=== PATIENT | female | born 1945 | race Caucasian/White ===

== ENCOUNTER 2024-01-03 06:18 | Inpatient (IN) | payer MEDICARE, OTHER, SELFPAY ==
--- NOTE | 2023-12-04 08:11 | CM ---
Addendum entered by Genesis Bruner 01/01/24 08:45:
Referral sent to [facility] through [facility]. Spoke with Asia at [facility] ([phone]). She confirmed receipt of referral and that they will see patient upon discharge. telephone clerk telegraph office to fax discharge instructions to [facility]; fax: [phone].
Original Note:
Patient is scheduled for an elective R TKR on 01/03/24. Spoke with patient's daughter, Elsy, prior to surgery via telephone. Introduced role of Orthopedic Navigator. She reports that patient lives alone in a one floor apartment at [facility]. She
currently functions independently. She uses a rollator in her apartment and to/from her meals. She uses a cane in the community. She also has a rolling walker, shower seat and raised toilet seat. She has had VN services through [facility]. PCP is Shelia
Azael.
Discussed orthopedic program and post surgical plans. Reviewed anticipated length of stay and that goal is for patient to return home at discharge. Also reviewed outpatient PT. She is in agreement with tentative plan and states that she and her
siblings will stay with patient when she initially returns home. [facility] when she returns home (They will see her in her apartment).
Patient will complete online education.
Plan: Orthopedic Navigator will remain available to assist with the care of patient and will reassess discharge needs after surgery.
[2023-12-11 12:55] VITALS: BMI 28.0
[2023-12-11 14:10] LABS: Hematocrit 42.5 % (37.0-47.0); Hemoglobin 13.8 g/dL (12.0-16.0); Mean Corp Hgb Conc. 32.5 g/dL (33.0-37.0); Mean Corpuscular Hgb 29.6 pg (27.0-31.0); Mean Corpuscular Volume 91.2 fL (81.0-99.0); Mean Platelet Volume 10.4 fL (7.4-10.4); Platelet Count 161 10^3/uL (130-400); Red Blood Cell Count 4.66 10^6/uL (4.20-5.40); Red Cell Dist. Width 13.9 % (11.5-14.5); White Blood Cell Count 4.8 10^3/uL (4.8-10.8)
[2023-12-11 14:39] LABS: Glycohemoglobin (HgbA1c) 5.1 % (4.0-5.6)
[2023-12-11 14:52] LABS: ALT (SGPT) 31 U/L (0-35); AST (SGOT) 44 U/L (14-36); Albumin 4.3 g/dl (3.5-5.0); Alkaline Phosphatase 102 U/L (38-126); Blood Urea Nitrogen 20 mg/dl (7-17); Calcium 9.4 mg/dl (8.4-10.2); Carbon Dioxide 31 mmol/L (22-30); Chloride 103 mmol/L (98-107); Estimated Creatinine Clearance 48 ml/min; Glucose 72 mg/dl (70-99); HDL Cholesterol 68 mg/dl; LDL Cholesterol, Calculated 57 mg/dl; Potassium 4.6 mmol/L (3.5-5.1); Sodium 138 mmol/L (135-145); Total Cholesterol 144 mg/dl (50-199); Total Protein 6.7 g/dl (6.3-8.2); Triglyceride 96 mg/dl (10-149); Very Low Density Lipoprotein 19 mg/dl (0-30); eGFR > 60.00
[2023-12-11 16:14] VITALS: BMI 28.0
[2024-01-03] VITALS (11 sets, daily range): BP systolic 104–156; BP diastolic 54–75; PULSE 61; O2SAT 94; BMI 28.0
[2024-01-03] MEDS: NORMOSOL-R 1000 IV ×2 (08:26→11:51)
[2024-01-03] MEDS: TYLENOL 650 MG PO ×3 (08:26→20:12)
[2024-01-03] MEDS: CELEBREX 200 MG PO (08:26)
[2024-01-03 08:51] LABS: INR 1.17; PT 14.9 Sec (11.4-14.6)
[2024-01-03] MEDS: ROXICODONE 5 MG PO (12:09)
[2024-01-03] MEDS: VITAMIN B-12 PO (13:50)
[2024-01-03] MEDS: VITAMIN D3 (cholecalciferol) PO (13:51)
[2024-01-03] MEDS: VITAMIN C PO (13:51)
[2024-01-03] MEDS: WELLBUTRIN XL (24 hour extended release) PO (13:51)
--- NOTE | 2024-01-03 14:33 | W.PN.ORTHO ---
Today's Communication / Plan
-
D/c when clinically stable.
Assessment
.
Distal Motor Intact: Yes
Dressing:
Clean, dry and intact.
Assessment:
R knee OA s/p R TKA w/ Dr Pena 01/03/24
DVT prophylaxis - Warfarin, b/l venous foot pumps
- Was placed on Lovenox bridge pre-op; no need to resume post-op per Cardio
- INRs to be managed by Cardio; will ask Cardio when first INR should be. INR assessed through home device
R knee pain - will include Prednisone taper and Lidoderm patches
- Monitor pain and adjust meds further if needed
HTN - + parameters - monitor BP
NSVT, persistent A fib, and post-operative bradycardia after AVR, status post dual chamber pacemaker insertion 2018 - monitor on tele
- Continue BB
- Resume Warfarin
Chronic diastolic heart failure, preserved ejection fraction - resume Furosemide w/ BP parameters to avoid post-surgical hypotension
- Decrease hourly IVF rate to avoid fluid overload
Severe mitral and tricuspid regurgitation, status post St. Isac mechanical mitral valve replacement, tricuspid valve repair, and left modified MAZE 2013
Severe aortic stenosis, status post St. Isac mechanical aortic valve replacement and aorta tear repair with bovine pericardial tissue 2018
- Resume Warfarin as stated above
Ambulatory dysfunction - on fall precautions
Mildly elevated AST - max dose of Tylenol reduced daily
�
Hypercholesterolemia
Abdominal aortic atherosclerosis
Pulmonary hypertension
Acute pyelonephritis 2017
Diverticulosis
Cholelithiasis, asymptomatic
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
Traumatic right temporal intracranial hemorrhage, status post RESPOOLER shunt 05/2023
Previous lacunar infarcts of basal ganglia
Thyroid nodules, stable on serial imaging
Depression
Anxiety
Plan
.
Surgery / Date: R TKA w/ Dr Pena 01/03/24
DVT Prophylaxis: Coumadin
Activity:
Out of bed.
PT/OT
Discharge Plan: Home (w/ home PT )
Subjective
.
.:
Patient examined resting in bed.
R knee pain 04/05 despite recent pain meds - will adjust medication regimen.
Denies any other acute complaints.
Vital Signs and Labs
.
Vital Signs and Labs:
Lab Results
12/11/23 12:45
12/11/23 12:45
Temp Pulse Resp BP Pulse Ox
97.8 F 50 18 140/67 97
01/03/24 08:28 01/03/24 08:28 01/03/24 08:28 01/03/24 08:28 01/03/24 08:28
PT 14.9 Sec (11.4-14.6) H 01/03/24 08:20
INR 1.17 01/03/24 08:20
Physical Exam
-
HEENT: No pallor, cyanosis, or jaundice. Throat clear.
NECK: Supple. No JVD.
RESPIRATORY: Lungs clear to auscultation.
CVS: Irregular irregular.
ABDOMEN: Soft, non-tender. No distension.
EXTREMITIES: Strength equal, no calf pain with palpation/dorsiflexion. Calves soft.
COMPOSITION PROFESSOR: AOx3. No focal deficits. aircraft maintenance supervisor grossly intact
[2024-01-03] MEDS: LIDOCAINE 4% PATCH 2 PATCH TOPICAL (14:53)
[2024-01-03] MEDS: DELTASONE 40 MG PO (14:54)
[2024-01-03] MEDS: ZOFRAN 4 MG IV (15:02)
[2024-01-03] MEDS: COUMADIN 5 MG PO (17:17)
[2024-01-03] MEDS: ANCEF 5 IV (17:18)
[2024-01-03] MEDS: SENOKOT 17.1999999999999993 MG PO (20:12)
[2024-01-03] MEDS: COLACE 100 MG PO (20:12)
[2024-01-03] MEDS: BACTROBAN 2% OINTMENT 1 APPLIC NASAL (20:12)
[2024-01-03] MEDS: LIPITOR 20 MG PO (22:06)
[2024-01-03] MEDS: ROXICODONE 10 MG PO (22:06)
[2024-01-04] VITALS (8 sets, daily range): BP systolic 130–154; BP diastolic 59–74; PULSE 60–61; O2SAT 87–98; BMI 29.6
[2024-01-04] MEDS: TYLENOL 650 MG PO ×4 (01:25→20:50)
[2024-01-04] MEDS: ANCEF 5 IV (01:26)
[2024-01-04] MEDS: ROXICODONE 10 MG PO (05:53)
[2024-01-04 06:18] LABS: INR 1.31; PT 16.4 Sec (11.4-14.6)
[2024-01-04] MEDS: BACTROBAN 2% OINTMENT 1 APPLIC NASAL ×2 (08:38→20:49)
[2024-01-04] MEDS: SENOKOT 17.1999999999999993 MG PO ×2 (08:39→20:50)
[2024-01-04] MEDS: COLACE 100 MG PO ×2 (08:39→20:49)
[2024-01-04] MEDS: WELLBUTRIN XL (24 hour extended release) 150 MG PO (08:39)
[2024-01-04] MEDS: TOPROL XL 25 MG PO (08:40)
[2024-01-04] MEDS: KCL 10 MEQ PO (08:41)
[2024-01-04] MEDS: VITAMIN D3 (cholecalciferol) 125 MCG PO (08:41)
[2024-01-04] MEDS: VITAMIN C 500 MG PO (08:42)
[2024-01-04] MEDS: VITAMIN B-12 1000 MCG PO (08:42)
[2024-01-04] MEDS: LIDOCAINE 4% PATCH 2 PATCH TOPICAL (08:42)
--- NOTE | 2024-01-04 08:52 | CM ---
Addendum entered by NAVIN Schneider 01/04/24 14:32:
Patient to remain in hospital another night. Patient back on oxygen. Spoke to lila Huston who was present today. Discussed need for home RN to monitor oxygen levels. Betzaida and family talked and agreed to add RN. Navigator spoke to Asia at [facility]. Vincenzo
works with [facility] to add RN. Referral updated to Vincenzo and Asia will contact [facility] to get RN to follow at home.
Fax discharge instructions to [phone].
Original Note:
Reviewed chart and held rounds with PT, OT and nursing. Patient admitted as planned for elective R TKR. Met with patient at bedside. Confirmed information previously obtained for assessment. Also discussed discharge plans. The plan is for patient to
return home at discharge. Her daughters will be staying with her at her [facility] apartment. Reviewed home PT services including start of care (tentatively 01/05). [facility] PT will see patient in her apartment at [facility]. Options list
provided and PAC data reviewed.
Patient has a rolling walker, rollator, shower seat, raised toilet seat and a cane at home.
Referral sent to [facility] through [facility]. Contact at [place] is Asia at ([phone]). They will see patient upon discharge. formula clerk to fax discharge instructions to [facility]; fax: [phone].
Patient will use [facility]'s pharmacy for discharge prescriptions.
--- NOTE | 2024-01-04 10:10 | W.PN.ORTHO ---
Today's Communication / Plan
-
Await PT and OT recs.
D/c later today if remaining clinically stable.
Assessment
.
Distal Motor Intact: Yes
Dressing:
Clean, dry and intact.
Assessment:
R knee OA s/p R TKA w/ Dr Pena 01/03/24
DVT prophylaxis - Warfarin, b/l venous foot pumps
- Was placed on Lovenox bridge pre-op; no need to resume post-op per Cardio
- INRs to be managed by Cardio. First INR per Coumadin clinic 1 week post-surgery. INR assessed through home device
R knee pain - will include Prednisone taper and Lidoderm patches
- Pain better tolerated by POD 1
HTN - + parameters - BPs stable
NSVT, persistent A fib, and post-operative bradycardia after AVR, status post dual chamber pacemaker insertion 2018 - rhythm stable on tele
- Continue BB
- Resumed Warfarin
Chronic diastolic heart failure, preserved ejection fraction - resumed Furosemide w/ BP parameters to avoid post-surgical hypotension
- Decreased hourly IVF rate to avoid fluid overload
- No s/sx of acute CHF
Severe mitral and tricuspid regurgitation, status post St. Isac mechanical mitral valve replacement, tricuspid valve repair, and left modified MAZE 2013
Severe aortic stenosis, status post St. Isac mechanical aortic valve replacement and aorta tear repair with bovine pericardial tissue 2018
- Resumed Warfarin as stated above
Ambulatory dysfunction - on fall precautions
Mildly elevated AST - max dose of Tylenol reduced daily
�
Hypercholesterolemia
Abdominal aortic atherosclerosis
Pulmonary hypertension
Acute pyelonephritis 2017
Diverticulosis
Cholelithiasis, asymptomatic
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
Traumatic right temporal intracranial hemorrhage, status post INSURANCE POLICY ISSUE CLERK shunt 05/2023
Previous lacunar infarcts of basal ganglia
Thyroid nodules, stable on serial imaging
Depression
Anxiety
Plan
.
Surgery / Date: R TKA w/ Dr Pena 01/03/24
DVT Prophylaxis: Coumadin
Activity:
Out of bed.
PT/OT
Discharge Plan: Home w/ VN (vs SNF)
Subjective
.
.:
Patient resting comfortably in bed this AM.
R knee pain better tolerated in comparison to yesterday.
Denies any new significant complaints.
Eager for potential d/c today.
Vital Signs and Labs
.
Vital Signs and Labs:
Lab Results
12/11/23 12:45
12/11/23 12:45
Temp Pulse Resp BP Pulse Ox
97.7 F 63 16 130/59 90
01/04/24 07:04 01/04/24 08:40 01/04/24 07:04 01/04/24 08:41 01/04/24 07:04
PT 16.4 Sec (11.4-14.6) H 01/04/24 05:39
INR 1.31 01/04/24 05:39
Non-invasive Hgb result: 14.1
Physical Exam
-
HEENT: No pallor, cyanosis, or jaundice. Throat clear.
NECK: Supple. No JVD.
RESPIRATORY: Lungs clear to auscultation.
CVS: Irregular irregular (rate controlled).
ABDOMEN: Soft, non-tender. No distension.
EXTREMITIES: Post-op R knee edema. Strength equal, no calf pain with palpation/dorsiflexion. Calves soft.
APPLIED PSYCHOLOGY PROFESSOR: AOx3. No focal deficits. incinerator plant supervisor grossly intact
[2024-01-04] MEDS: VENTOLIN NEBULES INH (12:03)
[2024-01-04 12:24] LABS: Blood Urea Nitrogen 24 mg/dl (7-17); Calcium 9.2 mg/dl (8.4-10.2); Carbon Dioxide 30 mmol/L (22-30); Chloride 99 mmol/L (98-107); Estimated Creatinine Clearance 49 ml/min; Glucose 116 mg/dl (70-99); Potassium 4.2 mmol/L (3.5-5.1); Sodium 136 mmol/L (135-145); eGFR > 60.00
[2024-01-04 12:42] LABS: NT-proBNP 1920 pg/ml; Troponin I < 0.012 ng/ml
[2024-01-04] MEDS: ROXICODONE 5 MG PO ×2 (13:09→17:34)
[2024-01-04] MEDS: LASIX 40 MG IV (13:10)
[2024-01-04] MEDS: FLUSH (NSS) 2 FLUSH IV (13:11)
[2024-01-04] MEDS: VENTOLIN NEBULES 2.5 MG INH ×2 (15:22→19:44)
--- NOTE | 2024-01-04 15:42 | CON.PUL ---
Consultation
Consultation Request
Date/Time Consultation Requested: 01/04/2024
Date/Time Consultation Performed: 01/04/2024
Requesting Provider: Dr. Pena
Performing Provider: Dr. Neeraj Emery
Reason for Consultation: Acute hypoxemic respiratory failure-postoperatively
Medical History
-
History of Present Illness:
78-year-old woman with history of osteoarthritis, hypertension, hypercholesterolemia, history of nonsustained ventricular tachycardia, atrial fibrillation, chronic heart failure with preserved ejection fraction, severe MR and TR status post
mechanical mitral valve, tricuspid valve repair in 2013. Status post aortic valve replacement 2019. Pacemaker, ambulatory dysfunction. Electively admitted for right knee arthroplasty. Surgery underwent without immediate complications at 01/03/2024.
Patient has persistent hypoxemia postoperatively. We were consulted on 01/04/2024 for evaluation.
Past Medical History
Past Medical History: Other (See assessment and plan section)
Social History
Tobacco: Non-smoker
Alcohol: Occasional
Employment: Retired
Family History
Family History: Reviewed & Not Pertinent
Allergies / Home Medications
Allergies
Allergy/AdvReac Type Severity Reaction Status Date / Time
Iodinated Contrast Media Allergy tingling, Verified 01/03/24 08:08
itching
Home Medications
Medication Instructions Recorded Confirmed Last Taken Type
atorvastatin 20 mg tablet 20 mg PO HS High Cholesterol 02/18/19 01/03/24 01/02/24 20:00 History
metoprolol succinate 25 mg 25 mg PO DAILY #30 tabs 04/04/19 01/03/24 01/03/24 Rx
tablet,extended release 24 hr
amlodipine 5 mg tablet 5 mg PO DAILY Blood Pressure 09/20/21 01/03/24 01/02/24 07:00 History
ascorbic acid (vitamin C) 500 mg 500 mg PO DAILY Supplement 09/20/21 12/05/23 12/27/23 History
tablet (Vitamin C)
biotin 1 mg capsule 1 mg PO DAILY Supplement 09/20/21 12/05/2312/27/24 History
cyanocobalamin (vitamin B-12) 1,000 mcg PO DAILY Supplement 09/20/21 12/05/23 12/27/23 History
1,000 mcg tablet
docosahexaenoic acid (dha)-epa 120 1 cap PO DAILY Supplement 09/20/21 01/03/24 12/27/23 History
mg-180 mg capsule
multivitamin with folic acid 400 1 tab PO DAILY Supplement 09/20/21 01/03/24 12/27/23 History
mcg tablet (Tab-A-Narayan)
potassium citrate 10 mEq (1,080 10 meq PO DAILY Electrolyte 09/20/21 01/03/24 01/02/24 07:00 History
mg) tablet,extended release Repletion
bupropion HCl 150 mg 24 hr tablet, 150 mg PO DAILY Depression 12/05/23 01/03/24 01/02/24 07:00 History
extended release
cholecalciferol (vitamin D3) 125 125 mcg PO DAILY Supplement 12/05/23 12/05/23 12/27/23 History
mcg (5,000 unit) tablet (Vitamin
D3)
furosemide 40 mg tablet 40 mg PO DAILY Fluid 12/05/23 01/03/24 01/02/24 08:00 History
Retention/Swelling
glucosam 750 mg-chondroi 100 1 tab PO DAILY Supplement 12/05/23 12/05/23 12/27/23 History
mg-hyalur 1.65 mg-CF borate 108 mg
tablet (Move Free ClearEdge3D)
vit C 250 mg-vit E 90 mg-zinc 40 1 tab PO DAILY Supplement 12/05/23 12/05/23 12/27/23 History
mg-copper 1 [id number]
capsule (PreserVision AREDS-2)
warfarin 5 mg tablet 5 mg PO HS Blood Clot Prevention/Tx 12/05/23 01/03/24 12/28/23 History
mupirocin 2 % topical ointment 1 applic intranasal BID #1 tube 12/11/23 Unknown Rx
oxycodone 5 mg tablet 5 - 10 mg PO Q4H PRN 01/04/24 Unknown Rx
moderate-severe pain #30 tabs
Review of Systems
-
History Source: Patient
All other systems: Negative unless noted
Vitals / Labs / Diagnostic Testing
Vital Signs
Temp Pulse Resp BP Pulse Ox
98.4 F 61 17 147/70 100
01/04/24 15:35 01/04/24 15:35 01/04/24 15:35 01/04/24 15:35 01/04/24 15:35
Lab Data
12/11/23 12:45
01/04/24 11:57
Laboratory Results
01/04/24
05:39
PT 16.4 H
INR 1.31
Diagnostic Testing:
Physical Exam
-
HEENT: Normocephalic
Cardiovascular: S1/S2
Respiratory: Clear and Non-Labored Respirations
GI: Soft and Non Distended
Neurology: Awake, Alert, Oriented and AO x 3
Skin: Warm
General: Respiratory Distress (n) and Comfortable
Assessment
-
Postoperative hypoxemia 2L NC.
VQ scan: 01/04/2024-low probability
Chest x-ray: Small bilateral pleural effusions. Cardiomegaly.
proBNP 1920/negative cardiac biomarkers.
Status post right arthroplasty: Local/regional spinal anesthesia
Conditions present prior admission:
Osteoarthritis
Hypertension
Abdominal aortic atherosclerosis
History of nonsustained ventricular tachycardia
Chronic atrial fibrillation on anticoagulation with warfarin
Heart failure with preserved ejection fraction
Severe MR and TR status post [place] Isac mechanical mitral valve and tricuspid valve repair 2013
Severe aortic stenosis status post mechanical aortic valve replacement in 2019
Diverticulosis
History of traumatic subdural hematoma status post rhinectomy 08/2021
Traumatic right temporal intracranial hemorrhage status post COMPUTER NUMERICAL CONTROL PROGRAMMER shunt 05/2023
History of previous lateral infarct
Ambulatory dysfunction
Depression
Anxiety
Echocardiogram 09/23/2019: Showed normal LVEF. Abnormal septal motion consistent with post open heart surgery status. Mild LVH. Stage I diastolic dysfunction. Mitral valve in place. Mild MR. Replaced mechanical aortic valve noted.
Assessment and plan:
Hypoxemia initially on 2 L of supplemental oxygen via nasal cannula, likely due to subsegmental atelectasis and possibly some degree of volume overload.(Small bilateral pleural effusions with moderately increased proBNP)
Received one dose of lasix with good response. Now on RA, pulse ox up to 96% on RA when uses IS. This was encouraged.
In no distress, asymptomatic other than postop pain.
-
VQ scan with low probability for pulmonary embolism.
-
Incentive spirometry encouraged
Out of bed with physical therapy as able
-
On prednisone taper and lidocaine patch for pain.
-
Warfarin has been restarted-follow INR
Mechanical DVT prophylaxis as able.
-
Hopefully can DC in AM
Cont. PT/OT
-
[2024-01-04] MEDS: DELTASONE 40 MG PO (16:19)
[2024-01-04] MEDS: COUMADIN 5 MG PO (17:34)
[2024-01-04] MEDS: ROXICODONE 2.5 MG PO (20:48)
[2024-01-04] MEDS: LIPITOR 20 MG PO (20:58)
[2024-01-05] MEDS: DILAUDID 0.5 MG IV (00:32)
[2024-01-05] MEDS: ZOFRAN 4 MG IV (00:32)
[2024-01-05] MEDS: TYLENOL PO (03:09)
[2024-01-05 03:35] VITALS: BP 159/76
[2024-01-05 05:23] VITALS: BMI 27.8
[2024-01-05 06:14] LABS: INR 1.66; PT 19.7 Sec (11.4-14.6)
--- NOTE | 2024-01-05 07:04 | PTCARENOTE ---
r knee increasing edema and pt continues to c/o pain at the site. minor erythema noted. n/v checks unchanged. dayshijorge rn aware.
[2024-01-05] MEDS: VENTOLIN NEBULES 2.5 MG INH (07:23)
--- NOTE | 2024-01-05 08:41 | CM ---
Addendum entered by Genesis Bruner 01/05/24 11:04:
Met with patient and her son, Pete. Discharge plans reviewed.
Original Note:
Reviewed chart and held rounds with PT, OT and nursing. Met with patient at bedside. Discussed discharge plans. The plan continues to be for patient to return home at discharge. Her daughters will be staying with her at her [facility] apartment.
Reviewed VN services including start of care 01/06), services ordered (PT, OT, SN). Since patient will need nursing services, [facility] to provide services.
Patient has a rolling walker, rollator, shower seat, raised toilet seat and a cane at home.
Spoke with Praneeth at [facility]. He confirms receipt of referral and their ability to start care on 01/06. braille and talking books clerk to fax discharge instructions to [facility]; fax: [phone].
Patient will use [facility] pharmacy for discharge prescriptions.
[2024-01-05] MEDS: TOPROL XL 25 MG PO (08:43)
[2024-01-05] MEDS: ROXICODONE 5 MG PO (08:45)
[2024-01-05] MEDS: WELLBUTRIN XL (24 hour extended release) 150 MG PO (08:46)
[2024-01-05] MEDS: KCL 10 MEQ PO (08:46)
[2024-01-05] MEDS: TYLENOL 650 MG PO (08:46)
[2024-01-05] MEDS: COLACE 100 MG PO (08:46)
[2024-01-05] MEDS: SENOKOT 17.1999999999999993 MG PO (08:46)
[2024-01-05] MEDS: VITAMIN D3 (cholecalciferol) 125 MCG PO (08:47)
[2024-01-05] MEDS: VITAMIN C 500 MG PO (08:47)
[2024-01-05] MEDS: VITAMIN B-12 1000 MCG PO (08:47)
[2024-01-05] MEDS: LIDOCAINE 4% PATCH 2 PATCH TOPICAL (08:47)
[2024-01-05 08:56] VITALS: BP 123/48
--- NOTE | 2024-01-05 09:15 | W.PN.ORTHO ---
Today's Communication / Plan
-
Await further Pulmonary recs.
D/c later today if cleared to go by Pulmonary.
Assessment
.
Distal Motor Intact: Yes
Dressing:
Clean, dry and intact.
Assessment:
R knee OA s/p R TKA w/ Dr Pena 01/03/24
DVT prophylaxis - Warfarin, b/l venous foot pumps
- Was placed on Lovenox bridge pre-op; no need to resume post-op per Cardio
- INRs to be managed by Cardio. First INR per Coumadin clinic 1 week post-surgery. INR assessed through home device
Acute hypoxemic respiratory failure-postoperatively - on room air currently w/ re-initiation of Lasix, Prednisone taper, standing order nebs, minimization of opioids, and IS
- Likely 2* volume overload from CHF (moderately elevated BNP, increased weight, small pleural effusions on CXR) - continue home Furosemide
- VQ scan low probability of PE
- Appreciate Pulmonary - will await further recs prior to d/c
HTN - + parameters - BPs stable
NSVT, persistent A fib, and post-operative bradycardia after AVR, status post dual chamber pacemaker insertion 2019 - brief run of PVCs this AM on tele, otherwise rhythm stable
- Continue BB
- Resumed Warfarin
Chronic diastolic heart failure, preserved ejection fraction - resumed Furosemide as BP should now tolerate it
- Decreased hourly IVF rate to avoid fluid overload
- Weight improved POD 2; no symptoms concerning of acute CHF today
Severe mitral and tricuspid regurgitation, status post St. Isca mechanical mitral valve replacement, tricuspid valve repair, and left modified MAZE 2013
Severe aortic stenosis, status post St. Isac mechanical aortic valve replacement and aorta tear repair with bovine pericardial tissue 2018
- Resumed Warfarin as stated above
Ambulatory dysfunction - on fall precautions
Mildly elevated AST - max dose of Tylenol reduced daily
�
Hypercholesterolemia
Abdominal aortic atherosclerosis
Pulmonary hypertension
Acute pyelonephritis 2017
Diverticulosis
Cholelithiasis, asymptomatic
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
Traumatic right temporal intracranial hemorrhage, status post DOCUMENTATION CONSULTANT shunt 05/2023
Previous lacunar infarcts of basal ganglia
Thyroid nodules, stable on serial imaging
Depression
Anxiety
Plan
.
Surgery / Date: R TKA w/ Dr Pena 01/03/24
DVT Prophylaxis: Coumadin
Activity:
Out of bed.
PT/OT
Discharge Plan: Home w/ VN
Subjective
.
.:
Patient resting comfortably in bed this AM.
Acute hypoxemic respiratory failure-postoperatively - likely secondary to volume overload. Pt now off supplemental O2.
Denies any new acute complaints. Reportedly feels better than yesterday.
Eager for potential d/c today.
Vital Signs and Labs
.
Vital Signs and Labs:
Lab Results
12/11/23 12:45
01/04/24 11:57
Temp Pulse Resp BP Pulse Ox
98.3 F 70 16 123/48 94
01/05/24 08:56 01/05/24 08:56 01/05/24 08:56 01/05/24 08:56 01/05/24 08:56
PT 19.7 Sec (11.4-14.6) H 01/05/24 04:57
INR 1.66 01/05/24 04:57
Non-invasive Hgb result: 13.3
Physical Exam
-
HEENT: No pallor, cyanosis, or jaundice. Throat clear.
NECK: Supple. No JVD.
RESPIRATORY: Lungs clear to auscultation.
CVS: Prosthetic S1, S2. RRR.
ABDOMEN: Soft, non-tender. No distension.
EXTREMITIES: Post-op R knee edema. Strength equal, no calf pain with palpation/dorsiflexion. Calves soft.
FLANGE TURNER: AOx3. No focal deficits. electric deicer inspector grossly intact
--- NOTE | 2024-01-05 11:05 | W.PN.PUL3 ---
Today's Communication / Plan
-
Discharge planning
Sign off
Assessment
-
Postoperative hypoxemia 2L NC.
VQ scan: 01/04/2024-low probability
Chest x-ray: Small bilateral pleural effusions. Cardiomegaly.
proBNP 1920/negative cardiac biomarkers.
Status post right arthroplasty: Local/regional spinal anesthesia
Conditions present prior admission:
Osteoarthritis
Hypertension
Abdominal aortic atherosclerosis
History of nonsustained ventricular tachycardia
Chronic atrial fibrillation on anticoagulation with warfarin
Heart failure with preserved ejection fraction
Severe MR and TR status post [place] Isac mechanical mitral valve and tricuspid valve repair 2013
Severe aortic stenosis status post mechanical aortic valve replacement in 2018
Diverticulosis
History of traumatic subdural hematoma status post rhinectomy 08/2021
Traumatic right temporal intracranial hemorrhage status post ARTIFICIAL LEATHER CALENDER OPERATOR shunt 05/2023
History of previous lateral infarct
Ambulatory dysfunction
Depression
Anxiety
Echocardiogram 09/23/2019: Showed normal LVEF. Abnormal septal motion consistent with post open heart surgery status. Mild LVH. Stage I diastolic dysfunction. Mitral valve in place. Mild MR. Replaced mechanical aortic valve noted.
Assessment and plan:
Clinically improved
Hypoxemia resolved.
likely due to subsegmental atelectasis and possibly some degree of volume overload.(Small bilateral pleural effusions with moderately increased proBNP)
Good response to diuresis
Currently asymptomatic.
Continue incentive spirometer
Increase activity as tolerated
-
VQ scan with low probability for pulmonary embolism.
-
On prednisone taper and lidocaine patch for pain.
-
Warfarin has been restarted-follow INR
Mechanical DVT prophylaxis as able.
-
Cont. PT/OT
-
No additional pulmonary recommendations.
For discharge today
Sign off
Subjective Data
-
Date of Service:
Date of Service: January 05, 2024
Chief Complaint: Pulmonary Follow Up (Postoperative hypoxemia)
Subjective:
Patient denies any pulmonary complaints this morning
Remains on room air
Sitting out of bed comfortably.
Review of Systems
Cardiopulmonary: Dyspnea (n), Cough (n), Sputum Production (n) and Wheezing (n)
Objective Data
Data Reviewed
Vital Signs / I&O / Oxygen:
Vital Signs
Temp Pulse Resp BP Pulse Ox
98.3 F 70 16 123/48 94
01/05/24 08:56 01/05/24 08:56 01/05/24 08:56 01/05/24 08:56 01/05/24 08:56
Intake and Output
01/04/24 01/05/24 01/06/24
06:59 06:59 06:59
Intake Total 2183 / 2183 1560 / 1560
Balance 2183 / 2183 1560 / 1560
SaO2 94
Nasal Cannula flow liters per 2
minute
Physical Exam
General: Comfortable
HEENT: Normocephalic
Cardiovascular: S1-S2
Respiratory: Clear and Non-Labored Respirations
GI: Soft and Non Distended
Neurology: Awake, Alert and Oriented
Labs/Micro/Reports
Lab Data
12/11/23 12:45
01/04/24 11:57
Laboratory Results
01/05/24
04:57
PT 19.7 H
INR 1.66
--- NOTE | 2024-01-05 11:09 | W.DS.TRANS ---
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
-
Discharge Instructions:
Sleep Apnea Risk Low
Discharge Diagnosis/Procedures R knee OA s/p R TKA w/ Dr Pena 01/03/24
Diet Other diet
Additional Diets Diabetic carb controlled x1 week for wound
healing/infection prevention; then resume
regular diet.
Activity As tolerated,With Walker
Driving Restrictions Not until seen by your Dr
Bathing Restrictions OK to Shower
Blood Work PT/INR 01/10/2024, with results to
Coumadin clinic for further Warfarin dose
adjustments.
Other Services VN,PT
Wound Care Dressing to be removed 1 week post-surgery.
Specialty Instructions Weigh Daily
Instructions:
Stand-Alone Forms: Total Hip/Knee Replacement D/C
Changes to Home Medications: Yes
Discharge Medications:
DC Medications w/original date entered in [facility]
atorvastatin 20 mg tablet 20 mg PO HS High Cholesterol 02/18/19
metoprolol succinate 25 mg tablet,extended release 24 hr 25 mg PO DAILY #30 tabs 04/04/19
ascorbic acid (vitamin C) 500 mg tablet (Vitamin C) 500 mg PO DAILY Supplement 09/20/21
biotin 1 mg capsule 1 mg PO DAILY Supplement 09/20/21
cyanocobalamin (vitamin B-12) 1,000 mcg tablet 1,000 mcg PO DAILY Supplement 09/20/21
docosahexaenoic acid (dha)-epa 120 mg-180 mg capsule 1 cap PO DAILY Supplement 09/20/21
multivitamin with folic acid 400 mcg tablet (Tab-A-Narayan) 1 tab PO DAILY Supplement 09/20/21
bupropion HCl 150 mg 24 hr tablet, extended release 150 mg PO DAILY Depression 12/05/23
cholecalciferol (vitamin D3) 125 mcg (5,000 unit) tablet (Vitamin D3) 125 mcg PO DAILY Supplement 12/05/23
glucosam 750 mg-chondroi 100 mg-hyalur 1.65 mg-CF borate 108 mg tablet (Move Free [employer]) 1 tab PO DAILY Supplement 12/05/23
vit C 250 mg-vit E 90 mg-zinc 40 mg-copper 1 [id number] capsule (PreserVision AREDS-2) 1 tab PO DAILY Supplement 12/05/23
warfarin 5 mg tablet 5 mg PO HS Blood Clot Prevention/Tx 12/05/23
acetaminophen 325 mg tablet 650 mg PO Q6H #60 tabs 01/04/24
amlodipine 5 mg tablet 5 mg PO DAILY Blood Pressure #0 tabs 01/04/24
docusate sodium 100 mg capsule 100 mg PO BID #30 caps 01/04/24
lidocaine 4 % topical patch 2 patch topical DAILY #30 ea 01/04/24
prochlorperazine maleate 5 mg tablet 5 mg PO Q8H PRN nausea and vomiting #30 tabs 01/04/24
sennosides 8.6 mg tablet (Senna Lax) 17.2 mg PO BID #30 tabs 01/04/24
furosemide 40 mg tablet 40 mg PO DAILY Fluid Retention/Swelling #0 tabs 01/05/24
magnesium hydroxide 400 mg/5 mL oral suspension 30 ml PO DAILYPRN PRN constipation #355 mL 01/05/24
oxycodone 5 mg tablet 5 - 10 mg PO Q6H PRN moderate-severe pain #30 tabs 01/05/24
potassium citrate 10 mEq (1,080 mg) tablet,extended release 10 meq PO DAILY Electrolyte Repletion #0 tabs 01/05/24
prednisone 10 mg tablet 30 mg PO TAPER Anti-inflammatory #12 tabs 01/05/24
Home Medication Changes
acetaminophen 325 mg tablet 650 mg PO Q6H #60 tabs 01/04/24
docusate sodium 100 mg capsule 100 mg PO BID #30 caps 01/04/24
lidocaine 4 % topical patch 2 patch topical DAILY #30 ea 01/04/24
prochlorperazine maleate 5 mg tablet 5 mg PO Q8H PRN nausea and vomiting #30 tabs 01/04/24
sennosides 8.6 mg tablet (Senna Lax) 17.2 mg PO BID #30 tabs 01/04/24
magnesium hydroxide 400 mg/5 mL oral suspension 30 ml PO DAILYPRN PRN constipation #355 mL 01/05/24
oxycodone 5 mg tablet 5 - 10 mg PO Q6H PRN moderate-severe pain #30 tabs 01/05/24
prednisone 10 mg tablet 30 mg PO TAPER Anti-inflammatory #12 tabs 01/05/24
Pending Results: No
[2024-01-05] MEDS: VENTOLIN NEBULES INH (11:28)
== END 2024-01-05 13:05 | disposition home health service (06) | DRG 469 ==
LOC: 2 SOUTH 06:18
PROVIDERS: Internal Medicine Cardiovascular Disease; Physician Assistant; ADMITTING PHYSICIAN Orthopaedic Surgery; CONSULT PHYSICIAN Internal Medicine Critical Care Medicine; FAMILY PHYSICIAN Student in an Organized Health Care Education/Training Program
PROC: 0SRC0J9 Replacement of Right Knee Joint with Synthetic Substitute, Cemented, Open Approach (ICD-10-PCS; 2024-01-03)
DX: M17.11 Unilateral primary osteoarthritis, right knee (principal); J96.01 Acute respiratory failure with hypoxia; I50.32 Chronic diastolic (congestive) heart failure; I48.19 Other persistent atrial fibrillation; I47.20 Ventricular tachycardia, unspecified; J98.11 Atelectasis; I11.0 Hypertensive heart disease with heart failure; I70.0 Atherosclerosis of aorta; F32.A Depression, unspecified; F41.9 Anxiety disorder, unspecified; E78.00 Pure hypercholesterolemia, unspecified; I27.20 Pulmonary hypertension, unspecified; Z79.01 Long term (current) use of anticoagulants
CPT/HCPCS: 36415; 71046; 73560; 78582; 80048; 80053; 80061; 83036; 83880; 84484; 85027; 85610; 87070; 94640; 97110; 97116; 97163; 97166; 97530; A9540; A9567; C1713; C1776

== ENCOUNTER 2024-02-26 11:59 | Emergency (ER) | payer MEDICARE, OTHER, SELFPAY ==
[2024-02-26 12:05] VITALS: BP 162/80
--- NOTE | 2024-02-26 13:33 | ED.GENMED ---
History of Present Illness
General
Chief Complaint: Musculo-Skeletal Complaint
Time Seen by Provider: 02/26/24 13:22
Travel History
Have you had any contact with someone who has COVID-19?: No
Do you have any symptoms of coronavirus? Fever > 100 degrees, chills, cough, shortness of breath, sore throat, loss of taste or smell, muscle aches, or headache?: No
History of Present Illness
History of Present Illness:
78-year-old female presents to the emergency department for evaluation of progressively worsening pain to the right knee beginning mid last week. She is just under 2 months status post right total knee replacement performed at this hospital, states
her rehab is going well and she was walking without a cane. Last week during physical therapy she noted increased pain and swelling, called orthopedics and was started on a course of prednisone, she completed this course without improvement.
Taking oxycodone as well without significant improvement pain. Denies any fevers or chills. Has minimal pain at rest. Localizes pain to the popliteal and distal thigh region. Scheduled to see her orthopedist tomorrow
Past History
Past History
ED Past Medical History: Arrthythmia (Atrial fibrillation), HTN and Hypercholesterolemia
ED Past Surgical History: Cardiac
Social History
Tobacco: Non-smoker
Alcohol: Occasional
Drug: None
Personal:
Living: with family
Employment: Retired
Family History
Family History: Negative Diabetes, Hypertension or CAD
Review of Systems
Review of Systems
Allergies reviewed?: Yes
All Other Systems: ROS reviewed and negative except as documented in HPI and ROS
Phy Exam
Physical Exam
Physical Exam:
GEN: Well appearing, NAD, WDWN
HEENT: Oral mucosa moist, no scleral icterus
Cardiac: Regular rate
Lung: No respiratory distress, no tachypnea
MSK: Moderate right knee swelling with visible effusion, passive range of motion elicits no pain. There is limitation of extension which the patient states is baseline since preoperative period. No erythema. The wound is well-approximated and
well-healed with no dehiscence
Skin: Good color, no pallor or jaundice, no rashes
Neuro: AO x3, moves all extremities freely
Psych: Calm, cooperative
Course
Orders/Labs/Results
Orders:
Orders
02/26/24 13:32
CR Knee- Right 4 Or More View* Urgent
Comment:
Reason For Exam: pain/swelling, 2 mos s/p TKA
Vital Signs
Initial and Last Documented VS:
Initial Vital Signs
Temp Pulse Resp BP Pulse Ox
97.9 F 60 16 162/80 98
02/26/24 12:05 02/26/24 12:05 02/26/24 12:05 02/26/24 12:05 02/26/24 12:05
Last Documented Vital Signs
Temp Pulse Resp BP Pulse Ox
97.9 F 60 16 162/80 98
02/26/24 12:05 02/26/24 12:05 02/26/24 12:05 02/26/24 12:05 02/26/24 12:05
MDM/Problems Addressed
MDM/Problems Addressed:
Patient does have a knee effusion, question of hemarthrosis given that she is on warfarin. No erythema or pain with passive range of motion. Certainly does not examine clinically as a septic prosthetic knee however that is the chief concern at
this time given the recency of her surgery. She does not have a follow-up appoint with orthopedics. I did discuss with orthopedics and they recommend waiting for arthrocentesis until evaluation tomorrow. Would not advise holding her warfarin
given that she she has 2 mechanical heart valves and her stroke risk would be quite elevated as a result of this
*Critical Care Note
Total Time (30-74mins, 75-104mins- exclusive of procedures): Not Applicable
ED Attending Note
-
Portions of this chart may have been created with voice recognition software.� Occasional wrong word or��sound alike� substitutions may have occurred due to the inherent limitations of voice recognition software.
Discharge Plan
Departure
Patient Disposition: Home (Routine Discharge)
Date of Disposition: 02/26/24
Time of Disposition: 14:46
Patient with high blood pressure during this ER visit?: No
Discharge Problem:
Effusion of right knee
Instructions: Swollen Joints (DC)
Prescriptions:
No Action
atorvastatin 20 MG tablet
20 mg PO HS
metoprolol succinate 25 MG tablet extended release 24 hr
25 mg PO DAILY Qty: 30 3RF
cyanocobalamin (vitamin B-12) 1,000 MCG tablet
1,000 mcg PO DAILY
ascorbic acid (vitamin C) [Vitamin C] 500 MG tablet
500 mg PO DAILY
docosahexaenoic acid-epa 1 CAP capsule
1 cap PO DAILY
Hold Instructions: Resume on 01/10/24.
multivitamin with folic acid [Tab-A-Narayan] 1 TABLET tablet
1 tab PO DAILY
biotin 1 MG capsule
1 mg PO DAILY
bupropion HCl 150 mg Tablet Extended Release 24 Hr
150 mg PO DAILY
PreserVision AREDS-2 250-90-40-1 mg Capsule
1 tab PO DAILY
cholecalciferol (vitamin D3) [Vitamin D3] 125 mcg (5,000 unit) Tablet
125 mcg PO DAILY
warfarin 5 mg Tablet
5 mg PO HS
Move Free Joint Health 750 mg-100 mg- 1.65 mg-108 mg Tablet
1 tab PO DAILY
Hold Instructions: Resume on 01/10/24.
docusate sodium 100 mg Capsule
100 mg PO BID Qty: 30 0RF
prochlorperazine maleate 5 mg Tablet
5 mg PO Q8H PRN (Reason: nausea and vomiting) Qty: 30 0RF
lidocaine 4 % Adhesive Patch,Medicated
2 patch topical DAILY Qty: 30 0RF
Rx Instructions:
Over the counter. 12 hours on, 12 hours off.
Apply to sides of right knee/thigh
sennosides [Senna Lax] 8.6 mg Tablet
17.2 mg PO BID Qty: 30 0RF
Rx Instructions:
Over the counter
acetaminophen 325 mg Tablet
650 mg PO Q6H Qty: 60 0RF
Rx Instructions:
DO NOT exceed >3000 mg daily.
amlodipine 5 MG tablet
5 mg PO DAILY Qty: 0 0RF
Rx Instructions:
HOLD IF systolic blood pressure <130 while on Oxycodone.
magnesium hydroxide 400 mg/5 mL Suspension
30 ml PO DAILYPRN PRN (Reason: constipation) Qty: 355 0RF
Rx Instructions:
Add to bowel regimen of Colace and Senna if no bowel movement occurs by 01/05/24
furosemide 40 mg Tablet
40 mg PO DAILY Qty: 0 0RF
potassium citrate 10 MEQ tablet extended release
10 meq PO DAILY Qty: 0 0RF
oxycodone 5 mg tablet
5 - 10 mg PO Q6H PRN (Reason: moderate-severe pain) Qty: 30 0RF
Rx Instructions:
1 tab for moderate pain, 2 if severe.
Dx total joint.
prednisone 10 mg tablet
30 mg PO TAPER Qty: 12 0RF
Rx Instructions:
3 TABS X 2 DAYS, 2 TABS X 2 DAYS, 1 TAB X 2 DAYS, THEN STOP
Referrals:
Shelia Romeo PA-C [Family Provider] -
Urnuly Pena MD [Active] -
Activity Restrictions/Additional Instructions:
Make sure the Orthopedic provider tomorrow is aware that you DID NOT stop taking your warfarin due to the stroke risk
Interventions
Interventions:
*Risk Screen - Suicide Last Done: 02/26/24 13:20
*General Assessment Last Done: 02/26/24 15:10
*Neglect/Abuse Screening Last Done: 02/26/24 13:20
*ED COVID-19 Vaccine History Last Done: 02/26/24 12:05
*Nursing Disposition Last Done: 02/26/24 15:10
ED-Musculoskeletal Assessment Last Done: 02/26/24 14:16
Discharge Date and Time
Discharge Date/Time: 02/26/24 15:11
Print Language: CITIZEN OF [place]
== END 2024-02-26 15:11 | disposition home or self-care (01) ==
LOC: EMR 11:59
PROVIDERS: EMERGENCY PHYSICIAN Emergency Medicine; FAMILY PHYSICIAN Student in an Organized Health Care Education/Training Program
DX: M25.461 Effusion, right knee (principal); Z96.651 Presence of right artificial knee joint
CPT/HCPCS: 99283; 73564

== ENCOUNTER 2024-02-28 11:28 | Emergency (ER) | payer MEDICARE, OTHER, SELFPAY ==
[2024-02-28 11:36] VITALS: BP 166/85
[2024-02-28 12:02] LABS: % Basophils 0.3 % (0-2); % Immature Granulocytes 0.5 % (0-0.5); % Lymphocytes 12.7 % (20.5-51.1); % Monocytes 9.5 % (1.7-9.3); Absolute Eosinophils 0.1 10^3/uL (0-0.7); Absolute Lymphocytes 0.8 10^3/uL (1.2-3.4); Absolute Monocytes 0.6 10^3/uL (0.1-0.6); Absolute Neutrophils 4.7 10^3/uL (1.4-6.5); Hematocrit 40.3 % (37.0-47.0); Hemoglobin 12.7 g/dL (12.0-16.0); Mean Corp Hgb Conc. 31.5 g/dL (33.0-37.0); Mean Corpuscular Hgb 28.5 pg (27.0-31.0); Mean Corpuscular Volume 90.4 fL (81.0-99.0); Mean Platelet Volume 9.8 fL (7.4-10.4); Nucleated Red Blood Cells % 0 %; Platelet Count 218 10^3/uL (130-400); Red Blood Cell Count 4.46 10^6/uL (4.20-5.40); Red Cell Dist. Width 14.5 % (11.5-14.5); White Blood Cell Count 6.1 10^3/uL (4.8-10.8)
[2024-02-28 12:24] LABS: Troponin I < 0.012 ng/ml
[2024-02-28 12:30] LABS: PT 35.7 Sec (11.4-14.6)
[2024-02-28 12:31] LABS: ALT (SGPT) 24 U/L (0-35); AST (SGOT) 35 U/L (14-36); Albumin 4.2 g/dl (3.5-5.0); Alkaline Phosphatase 114 U/L (38-126); Blood Urea Nitrogen 15 mg/dl (7-17); Calcium 9.5 mg/dl (8.4-10.2); Carbon Dioxide 32 mmol/L (22-30); Chloride 103 mmol/L (98-107); Glucose 93 mg/dl (70-99); Potassium 3.7 mmol/L (3.5-5.1); Sodium 140 mmol/L (135-145); Total Bilirubin 0.7 mg/dl (0.2-1.3); Total Protein 6.9 g/dl (6.3-8.2); eGFR > 60.00
--- NOTE | 2024-02-28 14:34 | ED.GENMED ---
History of Present Illness
General
Chief Complaint: Swelling
Source: patient and family
Exam Limitations: none
Time Seen by Provider: 02/28/24 14:17
Travel History
Have you had any contact with someone who has COVID-19?: No
Do you have any symptoms of coronavirus? Fever > 100 degrees, chills, cough, shortness of breath, sore throat, loss of taste or smell, muscle aches, or headache?: No
History of Present Illness
History of Present Illness:
78-year-old female history of atrial fibrillation, CHF, hypertension, hyperlipidemia, pacemaker, right knee replacement [id number] presenting with right lower extremity swelling worse over the past 2 weeks. Patient also reports shortness of
breath with exertion for the past few weeks. Patient states that she is on Coumadin, recent INR was 4 this morning. Patient states that she was seen by her orthopedist who started her on prednisone for swelling and pain to right knee/leg. Patient
states that she is supposed be on Lasix but has not taken it for the past 4 to 5 days due to not being able to get to the bathroom in time. Patient denies fever, cough, chest pain, rash, or injury.
Past History
Past History
ED Past Medical History: Arrthythmia (Atrial fibrillation), HTN and Hypercholesterolemia
ED Past Surgical History: Cardiac
Social History
Tobacco: Non-smoker
Alcohol: Occasional
Drug: None
Personal:
Living: with family
Employment: Retired
Family History
Family History: Negative Diabetes, Hypertension or CAD
Phy Exam
Physical Exam
Physical Exam:
General: Alert, no acute distress
Head: NCAT
Eyes: clear conjunctiva
Neck: supple
Cardiac: regular rate and rhythm, clicking valve
Lungs: clear to auscultation bilaterally. No wheezes, rales, or rhonchi. Speaking full unlabored sentences. No respiratory distress.
Abdomen: soft, nondistended nontender. No rebound or guarding.
MSK: Well-healed surgical incision overlying right knee with no surrounding erythema or discharge. 2+ pitting edema right lower extremity, no edema left lower extremity. 2+ DP pulse bilaterally. No erythema or rash to right lower extremity
Skin: warm, dry
Neuro: Alert and oriented x3. no focal deficits
Scores
Heart Failure Risk
Heart Failure Risk Score: Yes
History of Stroke or TIA: No
History of intubation for respiratory distress: No
Heart rate on ED arrival >/= 110: No
SaO2 <90% on arrival on room air: No
HR >/=110 during 3min walk test (or too ill to perform test): No
ECG has acute ischemic changes: No
Urea >/=12mmol/L (BUN 33.6mg/dL): No
Serum CO2>/=35mmol/L: No
Troponin I or T elevated to MS Level (0.4mg/dL): No
NT-proBNP >/=5,000ng/L (5,000pg/ml): No
HF Risk Score: 0
Admission Status: LOW RISK 2.8% Consider discharge to home with f/u visit to PCP/Extracorporeal Circulation Specialist
Course
Orders/Labs/Results
Orders:
Orders
02/28/24 11:38
EKG [Electrocardiogram (*1)] Urgent
Reason for Study: Shortness of Breath
EKG- Treatment ONCE
02/28/24 11:45
Complete Blood Count/With Diff Urgent
Comprehensive Metabolic Panel Urgent
INR [Prothrombin Time] Urgent
Troponin I Urgent
02/28/24 14:30
CXR2 [CR Chest - 2 Views ] Urgent
Comment:
Reason For Exam: sob, hx chf
Venous Doppler Lwr Ext Rt [US Periph Venous LOWER Ext RT] Urgent
Comment:
Reason For Exam: hx r knee replacement, rle edema
02/28/24 14:39
NT-proBNP Urgent
02/28/24 17:02
Furosemide [Lasix] 40 mg IV NOW STA
Abnormal Lab Results
02/28/24
11:45
MCHC 31.5 L g/dL
(33.0-37.0)
Absolute Lymphs (auto) 0.8 L 10^3/uL
(1.2-3.4)
Neutrophils % 76.0 H %
(42.2-75.2)
Lymphocytes % 12.7 L %
(20.5-51.1)
Monocytes % 9.5 H %
(1.7-9.3)
PT 35.7 H Sec
(11.4-14.6)
Carbon Dioxide 32 H mmol/L
(22-30)
02/28/24 11:45
02/28/24 11:45
Vital Signs
Initial and Last Documented VS:
Initial Vital Signs
Temp Pulse Resp BP Pulse Ox
98.4 F 63 18 166/85 98
02/28/24 11:36 02/28/24 11:36 02/28/24 11:36 02/28/24 11:36 02/28/24 11:36
Last Documented Vital Signs
Temp Pulse Resp BP Pulse Ox
98.4 F 60 12 169/82 94
02/28/24 11:36 02/28/24 17:17 02/28/24 17:15 02/28/24 17:17 02/28/24 17:00
Comment
Comment:
Patient presents to the Emergency Department with __right lower extremity swelling and shortness of breath
Number and Complexity of Problems Addressed at the Encounter
� Chronic conditions affecting care:
� Acute Exacerbation and/or Progression of Chronic Illness:
� Differential Diagnosis includes: DVT, CHF, PE
Amount and/or Complexity of Data to be Reviewed and Analyzed
� I performed an independent evaluation of and my interpretation is:
EKG: paced rhythm at 64bpm with QRS 126 [address]Tc 458
[address]:
Xrays: CXR: cardiomyopathy (unchanged from previous), mild insterstitial edema
Laboratory Studies: probnp 1790 (previously 5050, 1920), troponin within normal limits, no anemia with hemoglobin 12.7
Other:
� Review of other/old records reveals: xray right knee on 02/26/2024 shows no fractures/dislocations. unremarkable appearance of right knee prosthesis. no suprapatellar effusion
� Clinical information was obtained by an independent historian:
� Prescriptions/Medications Considered but not given:
� Further testing considered but not performed:
Risk of Complications and/or Morbidity or Mortality of Patient Management
� Social Determinants of health affecting care:
� Discussion with other providers (PCP, Hospitalists, Consultants, etc):
� Escalation of care including admission/observation vs risk of discharge considered: 78-year-old female history of CHF, atrial fibrillation, right knee replacement in December 2023 presenting with right knee pain and worsening lower right lower
extremity swelling. Patient states that she has not been taking Lasix for the past 4 to 5 days. Patient states that she has been compliant with Coumadin and last INR was within normal limits. Patient states that her INR has been labile over the
past few weeks. Will obtain duplex rule out DVT. If positive, will consider CTA chest rule out PE. Patient is already on Coumadin however. CXr shows mild interstitial edema, probnp 1790 (previously in 5000s). spO2 >95% on RA with ambulation.
ordered lasix 40mg IV here in ED. instructed to follow up with cardiology and orthopedics, start lasix 40mg daily again
*Critical Care Note
Total Time (30-74mins, 75-104mins- exclusive of procedures): Not Applicable
ED Attending Note
-
Portions of this chart may have been created with voice recognition software.� Occasional wrong word or��sound alike� substitutions may have occurred due to the inherent limitations of voice recognition software.
Discharge Plan
Departure
Patient Disposition: Home (Routine Discharge)
Date of Disposition: 02/28/24
Time of Disposition: 17:12
Patient with high blood pressure during this ER visit?: Yes
Discharge Problem:
CHF (congestive heart failure)
Instructions: BLOOD PRESSURE
Prescriptions:
No Action
atorvastatin 20 MG tablet
20 mg PO HS
metoprolol succinate 25 MG tablet extended release 24 hr
25 mg PO DAILY Qty: 30 3RF
cyanocobalamin (vitamin B-12) 1,000 MCG tablet
1,000 mcg PO DAILY
ascorbic acid (vitamin C) [Vitamin C] 500 MG tablet
500 mg PO DAILY
docosahexaenoic acid-epa 1 CAP capsule
1 cap PO DAILY
Hold Instructions: Resume on 01/10/24.
multivitamin with folic acid [Tab-A-Narayan] 1 TABLET tablet
1 tab PO DAILY
biotin 1 MG capsule
1 mg PO DAILY
bupropion HCl 150 mg Tablet Extended Release 24 Hr
150 mg PO DAILY
PreserVision AREDS-2 250-90-40-1 mg Capsule
1 tab PO DAILY
cholecalciferol (vitamin D3) [Vitamin D3] 125 mcg (5,000 unit) Tablet
125 mcg PO DAILY
warfarin 5 mg Tablet
5 mg PO HS
Move Free Joint Health 750 mg-100 mg- 1.65 mg-108 mg Tablet
1 tab PO DAILY
Hold Instructions: Resume on 01/10/24.
docusate sodium 100 mg Capsule
100 mg PO BID Qty: 30 0RF
prochlorperazine maleate 5 mg Tablet
5 mg PO Q8H PRN (Reason: nausea and vomiting) Qty: 30 0RF
lidocaine 4 % Adhesive Patch,Medicated
2 patch topical DAILY Qty: 30 0RF
Rx Instructions:
Over the counter. 12 hours on, 12 hours off.
Apply to sides of right knee/thigh
sennosides [Senna Lax] 8.6 mg Tablet
17.2 mg PO BID Qty: 30 0RF
Rx Instructions:
Over the counter
acetaminophen 325 mg Tablet
650 mg PO Q6H Qty: 60 0RF
Rx Instructions:
DO NOT exceed >3000 mg daily.
amlodipine 5 MG tablet
5 mg PO DAILY Qty: 0 0RF
Rx Instructions:
HOLD IF systolic blood pressure <130 while on Oxycodone.
magnesium hydroxide 400 mg/5 mL Suspension
30 ml PO DAILYPRN PRN (Reason: constipation) Qty: 355 0RF
Rx Instructions:
Add to bowel regimen of Colace and Senna if no bowel movement occurs by 01/05/24
furosemide 40 mg Tablet
40 mg PO DAILY Qty: 0 0RF
potassium citrate 10 MEQ tablet extended release
10 meq PO DAILY Qty: 0 0RF
oxycodone 5 mg tablet
5 - 10 mg PO Q6H PRN (Reason: moderate-severe pain) Qty: 30 0RF
Rx Instructions:
1 tab for moderate pain, 2 if severe.
Dx total joint.
prednisone 10 mg tablet
30 mg PO TAPER Qty: 12 0RF
Rx Instructions:
3 TABS X 2 DAYS, 2 TABS X 2 DAYS, 1 TAB X 2 DAYS, THEN STOP
Referrals:
Goyo Carias MD [Active] -
Shelia Romeo PA-C [Family Provider] -
Unruly Pena MD [Active] -
Activity Restrictions/Additional Instructions:
Start lasix 40mg daily again. Follow up with orthopedics and cardiology. Return to the emergency department for chest pain, shortness of breath, or new/worsening symptoms.
Interventions
Interventions:
*Risk Screen - Suicide Last Done: 02/28/24 11:36
*General Assessment Last Done: 02/28/24 11:36
*Neglect/Abuse Screening Last Done: 02/28/24 14:45
*ED COVID-19 Vaccine History Last Done: 02/28/24 11:36
*Nursing Disposition Last Done: 02/28/24 17:26
ED- Cardiac Assessment Last Done: 02/28/24 14:45
ED- Pulmonary Assessment Last Done: 02/28/24 14:45
ED-Skin Assessment Last Done: 02/28/24 14:45
Discharge Date and Time
Discharge Date/Time: 02/28/24 17:39
Print Language: [place]
[2024-02-28 14:44] VITALS: BP 170/80
[2024-02-28 15:00] VITALS: BP 170/76
[2024-02-28 15:14] LABS: NT-proBNP 1790 pg/ml
[2024-02-28 16:13] VITALS: BP 177/89
[2024-02-28 17:00] VITALS: BP 169/82
[2024-02-28] MEDS: LASIX 40 MG IV (17:17)
== END 2024-02-28 17:39 | disposition home or self-care (01) ==
LOC: EMR 11:28
PROVIDERS: Emergency Medicine; EMERGENCY PHYSICIAN Emergency Medicine; FAMILY PHYSICIAN Student in an Organized Health Care Education/Training Program
DX: R06.02 Shortness of breath (principal); M79.89 Other specified soft tissue disorders; M79.604 Pain in right leg; I11.0 Hypertensive heart disease with heart failure; I50.9 Heart failure, unspecified; E78.00 Pure hypercholesterolemia, unspecified; I48.91 Unspecified atrial fibrillation; Z95.0 Presence of cardiac pacemaker; Z96.651 Presence of right artificial knee joint; Z98.890 Other specified postprocedural states; Z79.01 Long term (current) use of anticoagulants; Z91.041 Radiographic dye allergy status
CPT/HCPCS: 99285; 96374; 71046; 80053; 83880; 84484; 85025; 85610; 93005; 93971

== ENCOUNTER → 2024-06-24 14:29 | Outpatient (REF) | payer MEDICARE, OTHER, SELFPAY | LOC: RCS 14:29 | PROVIDERS: ATTENDING PHYSICIAN Internal Medicine Cardiovascular Disease; FAMILY PHYSICIAN Student in an Organized Health Care Education/Training Program | DX: I48.19 Other persistent atrial fibrillation (principal); Z95.2 Presence of prosthetic heart valve | CPT/HCPCS: 93306 ==

== ENCOUNTER 2025-10-21 15:21 | Inpatient (IN) | payer MEDICARE, OTHER, SELFPAY ==
[2025-10-21 13:05] VITALS: BP 139/76
[2025-10-21 13:24] VITALS: BMI 25.9
--- NOTE | 2025-10-21 13:39 | ED.GENMED ---
History of Present Illness
General
Chief Complaint: Skin Problem
Time Seen by Provider: 10/21/25 13:19
History of Present Illness
History of Present Illness:
Patient presents to the emergency department with infection to her leg. She got scratched by a dog on on her left pierson. Initially was nonhealing and daughter was applying topical agents. Last week she developed worsening erythema to the
area and was diagnosed with cellulitis. She was started on Keflex 4 days ago. Since then she has had worsening symptoms. No fevers or chills.
Past History
Past History
ED Past Medical History: Arrthythmia (Atrial fibrillation), HTN and Hypercholesterolemia
ED Past Surgical History: Cardiac
Social History
Tobacco: Non-smoker
Alcohol: Occasional
Drug: None
Personal:
Living: with family
Employment: Retired
Family History
Family History: Negative Diabetes, Hypertension or CAD
Phy Exam
Physical Exam
Physical Exam:
General: No acute distress
Head: NCAT
Neck, Normal in appearance, no swelling
Respiratory: No Respiratory distress
Abdomen: No distension
Ext: no edema
Neuro: DAVIS, AOx4
Psych: Normal affect
Skin: Left pierson with circular lesion with scabbing. There is surrounding purpuric changes, warmth, erythema. No purulence
Course
Orders/Labs/Results
Orders:
Orders
10/21/25 Breakfast
Sodium, 4 Gram (BRAD)
At Your Request: Full Participation
Does patient need a safe tray?: No
10/21/25 13:47
Basic Metabolic Panel Urgent
Complete Blood Count/With Diff Urgent
Lactate Level [Lactic Acid] Urgent
Blood Culture Q30M
JOSE Source: Blood/Venous
Specimen Description:
Blood Culture Q30M
JOSE Source: Blood/Venous
Specimen Description:
10/21/25 14:17
CeFAZolin 1 GRAM [Ancef] 1 gram in 5 ml IV NOW
10/21/25 14:28
US Periph Venous LOWER Ext LT Urgent
Comment:
Reason For Exam: erythema/pain
10/21/25 14:59
PT/INR [Prothrombin Time] Stat
10/21/25 15:00
Admit/Transfer Patient As Directed
Co-Sign Provider:
Level of Care: Inpatient admission
Assign to:: Telemetry
Physician / Group: [email or web address]
Diagnosis: cellulitis
Reason for Telemetry: Arrhythmia
Date to Stop Telemetry: 10/24/25
Time to Stop Telemetry: 11:00
Reason for Hospitalization: cellulitis
Expected length of stay greater than two midnights?: Yes
ELOS- Estimated Length of Stay in days: 3
I certify the patient meets the requirements for IP care: Yes
10/21/25 15:01
PRN Pain Medication Management As Directed
May give lesser potent ordered pain med per pt: Yes
preference::
Protocol:: Medication orders for pain may be administered in a
manner that supports deferring to patient preference
when the pt is:
- Requesting an ordered lesser potent pain medication.
Least to most potent pain medications are defined
as: acetaminophen < NSAID < tramadol < opioids
(morphine, oxycodone, hydromorphone).
- Requesting a lesser dose of the same medication IF
ORDERED.
- Requesting a less intrusive route of administration
if both routes are prescribed by the provider (PO <
IV).
10/21/25 15:02
Code Status As Directed
Resuscitation Status: Full Code
10/21/25 16:29
Acetaminophen [Tylenol/Feverall] 650 mg RECTAL Q4HPRN PRN
Acetaminophen [Tylenol] 650 mg PO Q4HPRN PRN
10/21/25 16:29
WOUND/OSTOMY CONSULT Routine
Reason for Consult: left LE wound
Activity As Directed
Activity Level: Out of Bed-Early Mobility
Intake/ Output As Directed
Frequency: Per unit guidelines
Vital Signs As Directed
Frequency: Per unit guidelines
Weight As Directed
Frequency: Daily
10/21/25 18:00
Ampicillin/Sulbactam 3 G [Unasyn] 3 gm 0.9% Sodium Chloride 100 ml [Nss] 100 ml IV Q6H
Warfarin [Coumadin] 4 mg PO QPM
10/21/25 20:00
Metoprolol Xl [Toprol Xl] 25 mg PO BID
10/21/25 22:00
Diphenhydramine [Benadryl] 50 mg PO HS
10/22/25 06:00
Basic Metabolic Panel IN AM
Complete Blood Count/No Diff IN AM
Prothrombin Time IN AM
10/22/25 08:00
Amlodipine [Norvasc] 5 mg PO DAILY
Bupropion(24Hr)Extended Releas [WELLBUTRIN XL (24 hour extended release)] 150 mg PO DAILY
Cholecalciferol (Vitamin D3) [VITAMIN D3 (cholecalciferol)] 25 mcg PO DAILY
Cyanocobalamin [Vitamin B-12] 1,000 mcg PO DAILY
Spironolactone [Aldactone] 12.5 mg PO DAILY
Vit C/Vit E/Lutein/Min/[place]-3 [Ocuvite Softgel] 1 cap PO DAILY
10/24/25 11:00
DC Protocol for Telemetry ONCE
Abnormal Lab Results
10/21/25 10/21/25
13:47 14:59
WBC 4.6 L 10^3/uL
(4.8-10.8)
MCHC 32.6 L g/dL
(33.0-37.0)
Absolute Lymphs (auto) 0.9 L 10^3/uL
(1.2-3.4)
Lymphocytes % 20.3 L %
(20.5-51.1)
Monocytes % 9.7 H %
(1.7-9.3)
PT 29.2 H Sec
(11.4-14.6)
BUN 19 H mg/dl
(7-17)
10/21/25 13:47
10/21/25 13:47
Vital Signs
Initial and Last Documented VS:
Initial Vital Signs
Temp Pulse Resp BP Pulse Ox
97.6 F 63 18 139/76 95
10/21/25 13:05 10/21/25 13:05 10/21/25 13:05 10/21/25 13:05 10/21/25 13:05
Last Documented Vital Signs
Temp Pulse Resp BP Pulse Ox
97.8 F 64 17 171/90 98
10/21/25 16:31 10/21/25 16:31 10/21/25 16:31 10/21/25 16:31 10/21/25 16:31
*Pulse Oximetry
SaO2: 95
Oxygen Mode of Delivery: Room air
Patient hypoxic: no
*Critical Care Note
Total Time (30-74mins, 75-104mins- exclusive of procedures): Not Applicable
ED Attending Note
ED Attending Note
ED Attending Note:
Patient doing with worsening cellulitis despite oral antibiotics. Will need blood work, IV antibiotics.
-
Portions of this chart may have been created with voice recognition software.� Occasional wrong word or��sound alike� substitutions may have occurred due to the inherent limitations of voice recognition software.
Discharge Plan
Departure
Patient Disposition: Admit
Date of Disposition: 10/21/25
Time of Disposition: 14:40
Presentation/result/management discussed w/ accepting MD/DO: Hospitalist
Discharge Problem:
Cellulitis
Interventions
Interventions:
*Risk Screen - Suicide Last Done: 10/21/25 13:10
*General Assessment Last Done: 10/21/25 13:20
*Neglect/Abuse Screening Last Done: 10/21/25 13:20
*ED- Fall Risk Assessment Last Done: 10/21/25 13:20
*ED COVID-19 Vaccine History Last Done: 10/21/25 13:05
*ED Influenza Vaccine History Last Done: 10/21/25 13:05
*Nursing Disposition Last Done: 10/21/25 16:30
ED-Skin Assessment Last Done: 10/21/25 13:28
Discharge Date and Time
Discharge Date/Time: 10/21/25 16:32
[2025-10-21 14:11] LABS: Hematocrit 42.3 % (37.0-47.0); Hemoglobin 13.8 g/dL (12.0-16.0); Mean Corp Hgb Conc. 32.6 g/dL (33.0-37.0); Mean Corpuscular Volume 89.4 fL (81.0-99.0); Nucleated Red Blood Cells % 0 %; Platelet Count 143 10^3/uL (130-400); Red Cell Dist. Width 13.4 % (11.5-14.5)
[2025-10-21 14:25] LABS: Blood Urea Nitrogen 19 mg/dl (7-17); Calcium 9.1 mg/dl (8.4-10.2); Carbon Dioxide 30 mmol/L (22-30); Chloride 105 mmol/L (98-107); Estimated Creatinine Clearance 50 ml/min; Glucose 82 mg/dl (70-99); Potassium 4.5 mmol/L (3.5-5.1); Sodium 137 mmol/L (135-145); eGFR > 60.00
[2025-10-21 14:30] VITALS: BP 151/74
--- NOTE | 2025-10-21 14:44 | HPS.HSE ---
Family Physician
-
Family Physician: Paris Espinoza
Chief Complaint
-
left LE redness
History of Present Illness
80-year-old with past medical history of A-fib, hypertension, hypercholesteremia presented to us with infection to her leg. She got scratched by a dog on on her left pierson. Initially was healing and daughter was applying Neosporin. Last
week she developed worsening erythema to the area and was diagnosed with cellulitis. She was started on Keflex on Monday. patient stated no improvement. denied fever,chills, [place], dizzy or syncope.denied chest pain,sob. denied abdominal pain,n,v,d.
denied dysuria or hematuria.
Patient received a dose of Ancef. Duplex ordered in ER. Blood culture sent from ER. Admitting for further management
Medical History
Past Medical History
Past Medical History: Reports Other
Additional Past Medical History:
A-fib, left hydronephrosis, aortic valve stenosis, hypertension, severe tricuspid regurgitation, lacunar infract, brain bleed, atherosclerosis of abdominal aorta, pulmonary hypertension diastolic CHF pyelonephritis
Past Surgical History: Reports Other
Additional Past Surgical History:
Metabolic replacement, right sided craniotomy with stent placement, right knee replacement, cardiac pacemaker
Social History
Tobacco: Non-smoker
Alcohol: Occasional
Drug: None
Family History
Family History: Not pertinent
Allergies / Home Medications
Allergies reflects when Allergies were last updated in [facility].
Home Medications with original date entered in [facility]
Allergy/Medication List:
Allergies
Allergy/AdvReac Type Severity Reaction Status Date / Time
Iodinated Contrast Media Allergy tingling, Verified 10/21/25 13:10
itching
Home Medications
ascorbic acid (vitamin C) 500 mg tablet (Vitamin C) 500 mg PO DAILY Supplement 09/20/21
biotin 1 mg capsule 1 mg PO DAILY Supplement 09/20/21
cyanocobalamin (vitamin B-12) 1,000 mcg tablet 1,000 mcg PO DAILY Supplement 09/20/21
multivitamin with folic acid 400 mcg tablet (Tab-A-Narayan) 1 tab PO DAILY Supplement 09/20/21
vit C 250 mg-vit E 90 mg-zinc 40 mg-copper 1 vs-ebojme-fcrali capsule (PreserVision AREDS-2) 1 tab PO DAILY Supplement 12/05/23
amlodipine 5 mg tablet 5 mg PO DAILY Blood Pressure #0 tabs 01/04/24
bupropion HCl 300 mg 24 hr tablet, extended release (Wellbutrin XL) 300 mg PO DAILY Mental Health/Anxiety 10/21/25
cephalexin 500 mg capsule 500 mg PO Q8H Infection 10/21/25
cholecalciferol (vitamin D3) 25 mcg (1,000 unit) tablet (Vitamin D3) 25 mcg PO DAILY Supplement 10/21/25
diphenhydramine 25 mg-acetaminophen 500 mg tablet (Acetaminophen PM) 2 tab PO HS Sleep 10/21/25
glucosam 750 mg-chondroi 100 mg-hyalur 1.65 mg-CF borate 108 mg tablet (Move Free Joint Garena) 1 tab PO DAILY Supplement 10/21/25
metoprolol succinate 25 mg tablet,extended release 24 hr 25 mg PO BID Heart Disease/Condition 10/21/25
omega 2-uom-nxl-fish oil 1,000 mg (120 mg-180 mg) capsule (Fish Oil) 1 cap PO DAILY Supplement 10/21/25
spironolactone 25 mg tablet 12.5 mg PO DAILY Fluid Retention/Swelling 10/21/25
warfarin 4 mg tablet 4 mg PO QPM Blood Clot Prevention/Tx 10/21/25
Review of Systems
-
Constitutional: Reports No Symptoms
EENT: Reports No Symptoms
Respiratory: Reports No Symptoms
Cardiac: Reports No Symptoms
Abdomen/GI: Reports No Symptoms
: Reports No Symptoms
Musculoskeletal: Reports No Symptoms
Skin: Reports Other (Left lower extremity wound with redness)
Neurological: Reports No Symptoms
Endocrine: Reports No Symptoms
Hematologic/Lymphatic: Reports No Symptoms
Psych: Reports No Symptoms
Physical Exam
Vital Signs
Vital Signs
Temp Pulse Resp BP Pulse Ox
97.6 F 63 18 139/76 95
10/21/25 13:05 10/21/25 13:05 10/21/25 13:05 10/21/25 13:05 10/21/25 13:42
Physical Exam
General: Well Developed, Well Nourished and No Apparent Distress
HEENT: NormoCephalic, Moist mucous membranes and Atraumatic
Respiratory: Clear
Cardiac: S1/S2 and Regular Rhythm; No Murmur or Rub
GI: Soft, Non Tender, Non Distended and Normal Bowel Sounds; No Organomegaly
Rectal: Deferred by Provider
Musculoskeletal: No Clubbing, No Cyanosis and No Edema
Skin: Rash and Other (Left lower extremities redness and wound)
Neuro: AO x 3 and Nonfocal/grossly intact
Psych: Calm
Laboratory Results
-
10/21/25 13:47
10/21/25 13:47
Laboratory Results
Lactic Acid 0.9 mmol/L (0.7-2.0) 10/21/25 13:47
Data Reviewed
-
Lab Data: Labs Reviewed by me
Impression/Plan
-
# Left lower extremity cellulitis secondary to dog scratch
- Failed outpatient antibiotic therapy
- IV Ancef in the ER
-Initiated on IV Unasyn
- Ultrasound pending
- Tylenol p.o. for fever or pain
- Blood culture sent from ER
# Persistent atrial fib
#History of aortic valve stenosis
# History of mitral valve replacement with mechanical valve
# Presence of cardiac pacemaker
- Obtain EKG
- Metoprolol continued
- Coumadin continued
- Daily PT/INR
#History of hypertension
# Hypercholesteremia
# Anxiety
# Depression
- Wellbutrin continued
#Essential hypertension
-Norvasc continue with hold parameters
#CHF
- Spironolactone continued
-not in acute exacerbation
-strict I&O,daily weight
DVT prophylaxis#
- On Coumadin
# CODE STATUS
- Full code
--- NOTE | 2025-10-21 14:47 | W.PN.UPDATE ---
Update Note
Progress Note Update
This note serves as an addendum to the H&P by supply person MELISSA�
Gracie LUCY�
HPI�
80F from Home
PHX: CHF, A Fib on Warfarin
- got scratched by daughter's dog a couple of months on her left lower leg
- reports redness of her left lower leg
- on D3-4 of PO Keflex since Monday but worsened e redness is worse.
- on chr Warfarin for Prx AF
- BCx sent
- ER gave IV Cefazolin
Relevant VS
Temp Pulse Resp BP Pulse Ox
97.6 F 63 18 139/76 95
10/21/25 13:05 10/21/25 13:05 10/21/25 13:05 10/21/25 13:05 10/21/25 13:42
PE
Gen: Not toxic
HEENT: anicteric
Neck: supple
Lungs:CTA
Cor: RRR S1 S2
Abdomen:�Benign
SECURITIES CLERK: Grossly intact
MS:
LLEX:
Left pierson with circular lesion with scabbing.
cellultis with clear margin
Not purulence
Relevant Data
02/28/24 10/21/25
11:45 13:47
WBC 6.1 4.6 L
Creatinine 0.7
eGFR > 60.00
09/23/2019 TTE
left ventricular ejection fraction is 60% by visual assessment.
Abnormal septal motion consistent with post open heart surgery status.
Mild concentric left ventricular hypertrophy.
Stage I diastolic dysfunction suggestive of abnormal relaxation.
Severely dilated left atrium.
Moderately dilated right atrium.
Well-seated #35 mm mechanical mitral valve replacement with a mean gradient of
3 mmHg and at least mild mitral regurgitation.
Accurate assessment of the mitral regurgitation is not possible given shielding
from the valve.
Well-seated aortic valve replacement with peak and mean gradients of 14 and 8
mmHg, respectively.
Pacer wire and right ventricle.
Compared to previous echo 01/21/19 the aortic valve has been replaced.
NO PRIOR hospitalist admission:
ASSESSMENT & PLAN
Pending Rx reconciliation
Infected Dog scratched wound infection failed OP PO Keflex
- stable
- Marginal leucopenia
- IV Unasyn instead of IV CFZ
- BCX pending
- FU T, WCC
HX Prx AF on chr Warfarin
- check INR now and daily
- c/w warfarin according to admission INR
HX CHF type NOS
PHT
Last TTE was 2018 - LVEF 60%
- c/w Metoprolol XL and Spironolactone
pHTN
- on Amlodipine , BB XL and Spironolactone
HLD
HX
Depression : on Wellbutrin XL
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
Full code
IP MS
[2025-10-21] MEDS: ANCEF 5 IV (14:53)
[2025-10-21 15:16] LABS: INR 2.76; PT 29.2 Sec (11.4-14.6)
[2025-10-21 16:29] VITALS: BMI 25.9
[2025-10-21 16:31] VITALS: BP 171/90
[2025-10-21] MEDS: COUMADIN 4 MG PO (17:47)
[2025-10-21] MEDS: UNASYN IV (17:55)
[2025-10-21 19:00] VITALS: BP 144/70
[2025-10-21] MEDS: TOPROL XL 25 MG PO (20:48)
[2025-10-21] MEDS: BENADRYL 50 MG PO (21:33)
[2025-10-21] MEDS: TYLENOL 1000 MG PO (21:33)
[2025-10-21 23:00] VITALS: BP 137/75
[2025-10-22] MEDS: UNASYN IV ×3 (00:46→11:32)
[2025-10-22 03:00] VITALS: BP 137/72
[2025-10-22 05:41] LABS: Hematocrit 41.0 % (37.0-47.0); Hemoglobin 13.3 g/dL (12.0-16.0); Mean Corp Hgb Conc. 32.4 g/dL (33.0-37.0); Mean Corpuscular Volume 89.3 fL (81.0-99.0); Platelet Count 127 10^3/uL (130-400); Red Cell Dist. Width 13.5 % (11.5-14.5)
[2025-10-22 05:55] LABS: INR 2.63; PT 28.1 Sec (11.4-14.6)
[2025-10-22 06:00] VITALS: BMI 26.0
[2025-10-22 06:02] LABS: Blood Urea Nitrogen 15 mg/dl (7-17); Calcium 8.9 mg/dl (8.4-10.2); Carbon Dioxide 31 mmol/L (22-30); Chloride 106 mmol/L (98-107); Estimated Creatinine Clearance 50 ml/min; Glucose 84 mg/dl (70-99); Potassium 4.1 mmol/L (3.5-5.1); Sodium 139 mmol/L (135-145); eGFR > 60.00
[2025-10-22 07:36] VITALS: BP 154/76
[2025-10-22] MEDS: VITAMIN D3 (cholecalciferol) 25 MCG PO (08:34)
[2025-10-22] MEDS: OCUVITE SOFTGEL 1 CAP PO (08:34)
[2025-10-22] MEDS: NORVASC 5 MG PO (08:34)
[2025-10-22] MEDS: ALDACTONE 12.5 MG PO (08:34)
[2025-10-22] MEDS: VITAMIN B-12 1000 MCG PO (08:34)
[2025-10-22] MEDS: WELLBUTRIN XL (24 hour extended release) 150 MG PO (08:34)
[2025-10-22] MEDS: TOPROL XL 25 MG PO (08:34)
--- NOTE | 2025-10-22 08:45 | W.PN.HOSP.TC ---
Addendum entered and electronically signed by Jason Franco MD 10/22/25 13:19:
Attending�addendum:
I saw and evaluated the patient independently. I reviewed and discussed the resident�s note and agree with findings and plan as documented in the resident�s note.� patient seen and examined at bedside, denies any chest pain or shortness of breath,
no abdominal pain, no nausea, no vomiting, no diarrhea or constipation.
Left lower extremity redness improved
Physical�exam:
GENERAL : Patient is awake, alert, oriented x3
HEENT: Nonicteric sclerae, PERRLA, EOMI. Oropharynx clear. Moist mucous membranes. Conjunctivae appear well perfused.
CHEST: Chest wall is nontender.
HEART: Regular rate and rhythm without murmurs.
LUNGS: Clear to auscultation bilaterally.
ABDOMEN: Soft, positive bowel sounds, nontender, no organomegaly.
RECTAL: Deferred.
MUSCLES/EXTREMITIES: Left lower extremity redness improved
NEUROLOGIC: Cranial nerves II-XII intact without motor/sensory deficit.
�
Assessment/plan:
Cellulitis.
Continue Rocephin.
Possible discharge later today or tomorrow
Persistent A-fib.
Continue Coumadin.
Status post pacemaker.
Continue metoprolol
CODE STATUS: Full code
DVT prophylaxis: Warfarin
Diet: Cardiac diet
Disposition: Discharge later today or tomorrow am
�
Total time spent on today�s encounter was 51 minutes which included time spent in counseling the patient/family regarding diagnosis and treatment plan as listed above, goals of care, and symptom management. Case was discussed with nursing staff,
specialists, and care coordinators/case management. All labs and imaging personally reviewed by me. Remainder the time spent in detailed review of previous records, lab data, imaging, and other medical provider documentation.
Original Note:
Today's Communication/Plan
-
- Continue IV Unasyn
- If improving, patient can be discharged home with transition to p.o. antibiotics
- Daily INR/PT as patient is on warfarin
Assessment / Plan
Assessment / Plan
#Cellulitis
- Left lower extremity cellulitis secondary to a dog scratch 2 months ago
- Patient failed outpatient antibiotic therapy with Keflex (4 days)
- IV Ancef in the ER
- Initiated on IV Unasyn once admitted
- Ultrasound negative for DVT
- Blood culture sent from ER pending
#Persistent atrial fibrillation
#History of aortic valve stenosis
#History of mitral valve replacement with mechanical valve
#Presence of cardiac pacemaker
- Continue warfarin
- Continue daily PT/INR
- INR therapeutic today at 2.63
- Continue metoprolol
#Hypertension
- Continue amlodipine
#CHF
- Continue spironolactone
- I's and O's
#Anxiety
#Depression
- Continue bupropion
Full code
DVT PPx�on warfarin
Anticipated Discharge: Within 24 hours
Subjective/Interval History
-
Date of Service: October 22, 2025
Patient seen at the bedside this morning. Patient is overall feeling well. Patient denies fevers, chills, nausea, vomiting, diarrhea, other rashes. Patient has noticed some improvement in the redness and strep starting the IV antibiotics.
Objective Data
-
Labs:
Laboratory Results
10/22/25
05:23
WBC 4.0 L
Hgb 13.3
Hct 41.0
Plt Count 127 L
PT 28.1 H
INR 2.63
Sodium 139
Potassium 4.1
Chloride 106
Carbon Dioxide 31 H
BUN 15
Creatinine 0.7
Glucose 84
Calcium 8.9
Vital Signs:
Vital Signs
Temp Pulse Resp BP Pulse Ox
97.7 F 61 16 154/76 95
10/22/25 07:36 10/22/25 07:36 10/22/25 07:36 10/22/25 07:36 10/22/25 07:36
I&O
10/21/25 10/22/25 10/23/25
06:59 06:59 06:59
Intake Total 840 / 840
Balance 840 / 840
Review of Systems
-
History Source: Patient
Constitutional: Reports No Symptoms
EENT: Reports No Symptoms Reported
Respiratory: Reports No Symptoms
Cardiac: Reports No Symptoms
Abdomen/GI: Reports No Symptoms
Genitourinary: Reports No Symptoms
Musculoskeletal: Reports No Symptoms
Skin: Reports Other (Left lower extremity, pierson and ankle scratch wound with associated redness, warmth)
Neuro: Reports No Symptoms
Endocrine: Reports No Symptoms
Hematologic / Lymphatic: Reports No Symptoms
Allergy / Immunology: Reports No Symptoms
Physical Exam
-
General: Well Developed, Well Nourished and No Apparent Distress
HEENT: Normocephalic and Moist Mucous Membranes
Respiratory: Clear to Auscultation
Cardiac: Regular Rhythm and Other (Mechanical valve)
GI: Soft, Nontender and Nondistended
Musculoskeletal: No Edema
Skin: Other (Left lower extremity pierson and ankle scratch wound noted with surrounding erythema and warmth. Nontender to light touch.)
Neuro: Awake, Alert and Oriented
Psych: Calm
--- NOTE | 2025-10-22 10:08 | WOUNDNOTE ---
[facility] RN note: Patient admitted with cellulitis LLE. Patient lives at [facility]. She was scratched by a dog on day on her LLE.
See H&P for complete history.
PMH: a fib (Coumadin), HTN,
Wound Location and type/assessment: Patient admitted with: L medial calf dry scabbed abrasion/venous related. Skin red with linear scabs/dry skin in L medial/anterior calf region. Redness improved as per patient. Coccyx crease mild red r/t
moisture.
Appetite: good.
Pressure redistribution devices in place: [employer] Accumax. Patient is ambulatory.
Plan: LLE cleansed with saline, Vaseline applied to dry skin LE. Knee high Tubigrip size E applied bilateral. Patient denies Latex allergy. Instructed patient LLE skin/wound care and use of knee high Tubigrip. Heels off bed with pillow. Instructed
patient pressure injury prevention measures.
Confirm orders including knee high Tubigrip with Dr. Ewa Cortes and discussed with MIKE Geronimo.
Care plan to be updated and will follow as needed.
Note to case management requested for discharge: VN.
Recommend follow up at wound care center upon discharge.
[2025-10-22 10:58] VITALS: BP 155/78
--- NOTE | 2025-10-22 15:44 | W.DCSUMMARY ---
Addendum entered and electronically signed by Jason Franco MD 10/22/25 15:58:
Attending�addendum:
I saw and evaluated the patient independently. I reviewed and discussed the resident�s note and agree with findings and plan as documented in the resident�s note.� patient seen and examined at bedside, denies any chest pain or shortness of breath,
no abdominal pain, no nausea, no vomiting, no diarrhea or constipation.
Left lower extremity redness improved
Physical�exam:
GENERAL : Patient is awake, alert, oriented x3
HEENT: Nonicteric sclerae, PERRLA, EOMI. Oropharynx clear. Moist mucous membranes. Conjunctivae appear well perfused.
CHEST: Chest wall is nontender.
HEART: Regular rate and rhythm without murmurs.
LUNGS: Clear to auscultation bilaterally.
ABDOMEN: Soft, positive bowel sounds, nontender, no organomegaly.
RECTAL: Deferred.
MUSCLES/EXTREMITIES: Left lower extremity redness improved
NEUROLOGIC: Cranial nerves II-XII intact without motor/sensory deficit.
�
Assessment/plan:
Cellulitis.
Continue unasyn.
Discharge home on oral Augmentin and Doxy
Persistent A-fib.
Continue Coumadin.
Status post pacemaker.
Continue metoprolol
CODE STATUS: Full code
DVT prophylaxis: Warfarin
Diet: Cardiac diet
Disposition: Discharge home
Original Note:
Documented by User: Ewa Cortes DO, Resident 10/22/25 15:54
Discharge Summary
Discharge Data
Date of Admission: 10/21/25
Date of Discharge: 10/22/25
-
Pending Results: No
Hospital Course
Primary diagnosis: Acute cellulitis
Secondary diagnosis: Paroxysmal atrial fibrillation, H/O mitral valve replacement with mechanical valve, hypertension, hypercholesterolemia
Hospital course:
Patient is a 80-year-old female with PMH pertinent for atrial fibrillation on warfarin, hypertension, hypercholesteremia presenting to [facility] with infection of her lower left extremity. Patient states that she was scratched by a dog over [place]
about 2 months ago. Patient notes poor wound healing due to her warfarin, so she was self treating her wound with Neosporin. The wound then became infected, started to feel warmer, more painful and had a new red rash. Patient saw her PCP last
week who prescribed her Keflex, but after 4 days patient did not notice any improvement in her symptoms and presented to [facility] ED. in the ED, patient's blood work was unremarkable. Ultrasound of the lower extremity was negative for DVT. Blood
cultures x 2 drawn. Patient got 1 dose of Ancef in the ED. Patient was admitted for further IV antibiotic treatment for cellulitis of the left lower extremity.
Patient was started on Unasyn IV. Overnight patient denies any fevers, chills, nausea, vomiting, diarrhea, pain of the extremity and notes much improvement of erythema. Blood cultures x 2 both showed no growth. Patient will be discharged home
with p.o. antibiotics: Augmentin and doxycycline.
Patient will be discharged home.
Imaging:
IMPRESSION:
No sonographic evidence for left lower extremity deep venous thrombosis.
Discharge Plan
-
Patient Disposition: Home (Routine Discharge)
Discharge Diagnosis/Procedures: Acute cellulitis
Condition: Good
Diet: Low Sodium
Activity: As tolerated
Activity Restrictions/Additional Instructions:
Wound Care Instructions
LLE scabbed ulcer-clean with saline or mild soap and water, pat dry, Aquaphor ointment to dry skin LLE. Cover scab with non stick dressing (i.e. adaptic and ABD pad or Telfa pad) as needed for protection/drainage under Tubigrip stocking.
Bilateral knee high Tubigrip size E as tolerated; remove at bedtime; reapply every morning.
10/22/25 Miconazole powder to sacral/coccyx crease twice a day x 10 days.
Elevate heels off bed with pillow/s.
Follow up at wound care center call for an appointment.
Please continue antibiotics for 5 days as prescribed. Last day 10/27/25.
Referrals:
Paris Espinoza PA [Family Provider, Family Practice]
Prescriptions:
New
amoxicillin-pot clavulanate 875-125 mg tablet
1 tab PO BID Qty: 10 0RF
doxycycline hyclate 100 mg capsule
100 mg PO BID Qty: 10 0RF
Continued
cyanocobalamin (vitamin B-12) 1,000 MCG tablet
1,000 mcg PO DAILY
ascorbic acid (vitamin C) [Vitamin C] 500 MG tablet
500 mg PO DAILY
multivitamin with folic acid [Tab-A-Narayan] 1 TABLET tablet
1 tab PO DAILY
biotin 1 MG capsule
1 mg PO DAILY
PreserVision AREDS-2 250-90-40-1 mg Capsule
1 tab PO DAILY
amlodipine 5 MG tablet
5 mg PO DAILY Qty: 0 0RF
metoprolol succinate 25 MG tablet extended release 24 hr
25 mg PO BID
spironolactone 25 mg Tablet
12.5 mg PO DAILY
warfarin 4 mg Tablet
4 mg PO QPM
diphenhydramine-acetaminophen [Acetaminophen PM] 25-500 mg Tablet
2 tab PO HS
bupropion HCl [Wellbutrin XL] 300 mg Tablet Extended Release 24 Hr
300 mg PO DAILY
cholecalciferol (vitamin D3) [Vitamin D3] 25 mcg (1,000 unit) Tablet
25 mcg PO DAILY
omega 5-hpy-zch-fish oil [Fish Oil] 1,000 (120-180) mg Capsule
1 cap PO DAILY
Move Free Joint Health 750 mg-100 mg- 1.65 mg-108 mg Tablet
1 tab PO DAILY
Discontinued
cephalexin 500 mg Capsule
500 mg PO Q8H
Rx Instructions:
for 7 days starting 10/18/25
Discharge Orders:
Discharge Patient (As Directed); Ordered 10/22/25
Ordered By: Ewa Cortes
Discharge Date and Time
Print Language: MACEDONIAN

Documented by User: Jason Franco MD 10/22/25 15:58
Discharge Summary
Discharge Data
Date of Admission: 10/21/25
Date of Discharge: 10/22/25
Discharge Plan
-
Patient Disposition: Home (Routine Discharge)
Discharge Diagnosis/Procedures: Acute cellulitis
Condition: Good
Diet: Low Sodium
Activity: As tolerated
Activity Restrictions/Additional Instructions:
Wound Care Instructions
LLE scabbed ulcer-clean with saline or mild soap and water, pat dry, Aquaphor ointment to dry skin LLE. Cover scab with non stick dressing (i.e. adaptic and ABD pad or Telfa pad) as needed for protection/drainage under Tubigrip stocking.
Bilateral knee high Tubigrip size E as tolerated; remove at bedtime; reapply every morning.
10/22/25 Miconazole powder to sacral/coccyx crease twice a day x 10 days.
Elevate heels off bed with pillow/s.
Follow up at wound care center call for an appointment.
Please continue antibiotics for 5 days as prescribed. Last day 10/27/25.
Referrals:
Paris Espinoza PA [Family Provider, Family Practice]
Prescriptions:
New
amoxicillin-pot clavulanate 875-125 mg tablet
1 tab PO BID Qty: 10 0RF
doxycycline hyclate 100 mg capsule
100 mg PO BID Qty: 10 0RF
Continued
cyanocobalamin (vitamin B-12) 1,000 MCG tablet
1,000 mcg PO DAILY
ascorbic acid (vitamin C) [Vitamin C] 500 MG tablet
500 mg PO DAILY
multivitamin with folic acid [Tab-A-Narayan] 1 TABLET tablet
1 tab PO DAILY
biotin 1 MG capsule
1 mg PO DAILY
PreserVision AREDS-2 250-90-40-1 mg Capsule
1 tab PO DAILY
amlodipine 5 MG tablet
5 mg PO DAILY Qty: 0 0RF
metoprolol succinate 25 MG tablet extended release 24 hr
25 mg PO BID
spironolactone 25 mg Tablet
12.5 mg PO DAILY
warfarin 4 mg Tablet
4 mg PO QPM
diphenhydramine-acetaminophen [Acetaminophen PM] 25-500 mg Tablet
2 tab PO HS
bupropion HCl [Wellbutrin XL] 300 mg Tablet Extended Release 24 Hr
300 mg PO DAILY
cholecalciferol (vitamin D3) [Vitamin D3] 25 mcg (1,000 unit) Tablet
25 mcg PO DAILY
omega 3-gxv-gmc-fish oil [Fish Oil] 1,000 (120-180) mg Capsule
1 cap PO DAILY
Move Free Joint Health 750 mg-100 mg- 1.65 mg-108 mg Tablet
1 tab PO DAILY
Discontinued
cephalexin 500 mg Capsule
500 mg PO Q8H
Rx Instructions:
for 7 days starting 10/18/25
Discharge Orders:
Discharge Patient (As Directed); Ordered 10/22/25
Ordered By: Ewa Cortes
Discharge Date and Time
Print Language: MACEDONIAN
[2025-10-22 15:59] VITALS: BP 149/80
== END 2025-10-22 16:24 | disposition home or self-care (01) | DRG 603 ==
LOC: 3 WEST ACU 15:21
PROVIDERS: Registered Nurse; ADMITTING PHYSICIAN Internal Medicine; ATTENDING PHYSICIAN General Practice; EMERGENCY PHYSICIAN Emergency Medicine; FAMILY PHYSICIAN Physician Assistant Medical
DX: L03.116 Cellulitis of left lower limb (principal); I50.32 Chronic diastolic (congestive) heart failure; I48.19 Other persistent atrial fibrillation; I11.0 Hypertensive heart disease with heart failure; E78.00 Pure hypercholesterolemia, unspecified; F32.A Depression, unspecified; W54.8XXA Other contact with dog, initial encounter; Z79.01 Long term (current) use of anticoagulants; Z79.899 Other long term (current) drug therapy; Z95.0 Presence of cardiac pacemaker; Z95.2 Presence of prosthetic heart valve
CPT/HCPCS: 80048; 83605; 85025; 85027; 85610; 87040; 93971; 96374; 99284

== ENCOUNTER 2025-11-06 16:33 | Emergency (ER) | payer MEDICARE, OTHER, SELFPAY ==
[2025-11-06 16:35] VITALS: BMI 27.2
[2025-11-06 16:38] VITALS: BP 142/70
[2025-11-06 17:47] VITALS: BP 163/78
[2025-11-06 18:00] VITALS: BP 153/73
[2025-11-06 18:39] LABS: INR 3.24; PT 32.6 Sec (11.4-14.6)
[2025-11-06 19:08] VITALS: BP 162/80
--- NOTE | 2025-11-06 19:57 | ED.GENMED ---
History of Present Illness
General
Chief Complaint: Fall
Source: patient
Exam Limitations: none
Time Seen by Provider: 11/06/25 18:11
History of Present Illness
History of Present Illness:
Note:
CHIEF COMPLAINT(S)
Facial fall injury with abrasions sustained on the bridge of the nose.
HISTORY OF PRESENT ILLNESS
The patient is an 80-year-old female with a history of atrial fibrillation, artificial heart valves, and a pacemaker, currently on warfarin therapy, who presented after sustaining a fall approximately three hours ago at 4:00 PM. The incident
occurred as she was pushing open a heavy door while carrying laundry back to her room, causing her to fall directly onto her face. The patient reports that she attempted to brace herself with her hands but ultimately landed face-first. Despite
wearing glasses, they remained intact, but an abrasion was noted at the bridge of her nose where the glasses rest. She denies any pain in her neck, back, hips, or wrists. Additionally, the patient reports a bruise on her right knee, which has a
plate, although she does not express significant discomfort. She did not lose consciousness during the fall. The patients INR is typically maintained between 3.0 and 3.5. She was preparing for dinner at the time of the fall and requested a call to
her daughter for post-evaluation transportation.
PAST MEDICAL AND SURGICAL HISTORY
- Atrial Fibrillation
- Artificial heart valves
- Pacemaker implantation
CHRONIC MEDICAL CONDITIONS SIGNIFICANTLY AFFECTING CARE
- Atrial Fibrillation
- Anticoagulation therapy (Warfarin)
PHYSICAL EXAM
General: Alert, no acute distress.
Skin: Warm, dry, abrasion noted on the bridge of the nose and right knee.
Head: Normocephalic, atraumatic, abrasion on the nose.
Neck: Supple, no cervical tenderness. Trachea midline.
Eye Ears, nose, mouth and throat: Oral mucosa moist, no signs of trauma to the oral cavity.
Cardiovascular: Normal peripheral perfusion, No edema.
Respiratory: Respirations are non-labored.
Gastrointestinal: Abdomen nondistended
Back: Normal range of motion, No thoracic tenderness, Normal alignment.
Musculoskeletal: Normal range of motion, normal strength in the extremities, no obvious injuries to arms and legs.
Neurological: Alert and oriented to person, place, time, and situation, No focal neurological deficit observed.
Psychiatric: Cooperative, appropriate mood & affect.
PROBLEM LIST
Acute:
- Facial abrasions from fall
Chronic:
- Atrial Fibrillation
- Anticoagulation therapy (Warfarin management)
PLAN
- Obtain radiological imaging to rule out any acute fractures or significant injuries.
- Review the CT scan of the head for any intracranial injury.
- Keep INR therapeutic range monitoring continued between 3.0 and 3.5.
- Coordinate with the patients daughter for safe transportation home post-evaluation.
DIFFERENTIAL DIAGNOSIS
The Differential Diagnosis includes, in no particular order and is not limited to:
- Facial trauma
- Abrasion secondary to fall
- Nasal fracture
- Maxillary fracture
- Soft tissue injury
- Subdural hematoma
- Epidural hematoma
- Concussion
- Contusion
- Orbital fracture
Disposition:
SUMMARY OF ENCOUNTER
The patient, an 80-year-old female with a history of atrial fibrillation, artificial heart valves, and a pacemaker, on warfarin therapy, presented to the emergency department following a fall. She reported falling face-first into a door while
carrying laundry, resulting in a facial abrasion on the bridge of her nose. A CT scan was obtained and showed no intracranial hemorrhage. The patient was evaluated thoroughly for any signs of other injuries or neurological deficits and was found to
have a non-focal neurological exam. Her INR remained stable within her therapeutic range of 3.0 to 3.5.
PLAN
The plan includes coordinating with the patient�s daughter for safe transportation home and discussing follow-up care. Monitoring her INR therapeutic range should continue. Finally, she should have outpatient follow-up to reassess the facial injury
and her overall condition.
INDEPENDENT REVIEW OF LABS AND INTERPRETATION OF TESTS
My independent review of the CT scan indicates no intracranial hemorrhage.
PATIENT EDUCATION AND COUNSELING
The patient was educated on the possible warning signs of concussion or intracranial injury, despite the negative CT scan. She was advised to observe her symptoms and call for help if she experiences severe headaches, confusion, vomiting, or any new
symptoms.
FOLLOW-UP INSTRUCTIONS
The patient should follow up with her primary healthcare provider to ensure there are no further complications and to manage her warfarin therapy based on her INR levels.
MEDICATION RECONCILIATION
The patient is on warfarin for anticoagulation due to her artificial heart valves and atrial fibrillation.
MEDICAL DECISION MAKING
-Complexity of Data Reviewed: Chronic conditions affecting care include atrial fibrillation, anticoagulation therapy (Warfarin management). Differential diagnosis considered was facial trauma, abrasion secondary to fall, nasal fracture, maxillary
fracture, soft tissue injury, subdural hematoma, epidural hematoma, concussion, contusion, and orbital fracture.
-Data:
Category 1
The non-emergency department records reviewed include her consistent INR range maintenance at 3.0 to 3.5.
Category 3
Discussion with the patient about her warfarin therapy and continued monitoring of INR levels was undertaken.
-Risk:
Prescription medication management is required for continuous monitoring of her warfarin therapy to prevent potential complications associated with her history of atrial fibrillation and artificial heart valves.
DIAGNOSIS
Facial abrasion, secondary to fall (S00.83XA).
History of atrial fibrillation (I48.91).
Presence of artificial heart valves (Z95.3).
Past History
Past History
ED Past Medical History: Arrthythmia (Atrial fibrillation), HTN and Hypercholesterolemia
ED Past Surgical History: Cardiac
Social History
Tobacco: Non-smoker
Alcohol: Occasional
Drug: None
Personal:
Living: with family
Employment: Retired
Family History
Family History: Negative Diabetes, Hypertension or CAD
Phy Exam
Physical Exam
Physical Exam:
.
Course
Orders/Labs/Results
Orders:
Orders
11/06/25 18:01
CT Head W/o Iv Contrast Urgent
Comment:
Reason For Exam: fall, hit face
11/06/25 18:19
Prothrombin Time Urgent
Abnormal Lab Results
11/06/25
18:19
PT 32.6 H Sec
(11.4-14.6)
Vital Signs
Initial and Last Documented VS:
Initial Vital Signs
Temp Pulse Resp BP Pulse Ox
98.2 F 71 16 142/70 96
11/06/25 16:38 11/06/25 16:38 11/06/25 16:38 11/06/25 16:38 11/06/25 16:38
Last Documented Vital Signs
Temp Pulse Resp BP Pulse Ox
98.2 F 60 16 162/80 94
11/06/25 16:38 11/06/25 19:32 11/06/25 19:32 11/06/25 19:08 11/06/25 19:58
*Pulse Oximetry
SaO2: 94
Oxygen Mode of Delivery: Room air
Patient hypoxic: no
*Critical Care Note
Total Time (30-74mins, 75-104mins- exclusive of procedures): Not Applicable
ED Attending Note
-
Portions of this chart may have been created with voice recognition software.� Occasional wrong word or��sound alike� substitutions may have occurred due to the inherent limitations of voice recognition software.
Discharge Plan
Departure
Patient Disposition: Home (Routine Discharge)
Date of Disposition: 11/06/25
Time of Disposition: 19:58
Patient with high blood pressure during this ER visit?: Yes
Discharge Problem:
Head injury, Abrasion
Instructions: Head Injury in Adults (DC), Skin Abrasions (DC), BLOOD PRESSURE
Prescriptions:
No Action
cyanocobalamin (vitamin B-12) 1,000 MCG tablet
1,000 mcg PO DAILY
ascorbic acid (vitamin C) [Vitamin C] 500 MG tablet
500 mg PO DAILY
multivitamin with folic acid [Tab-A-Narayan] 1 TABLET tablet
1 tab PO DAILY
biotin 1 MG capsule
1 mg PO DAILY
PreserVision AREDS-2 250-90-40-1 mg Capsule
1 tab PO DAILY
amlodipine 5 MG tablet
5 mg PO DAILY Qty: 0 0RF
metoprolol succinate 25 MG tablet extended release 24 hr
25 mg PO BID
spironolactone 25 mg Tablet
12.5 mg PO DAILY
warfarin 4 mg Tablet
4 mg PO QPM
diphenhydramine-acetaminophen [Acetaminophen PM] 25-500 mg Tablet
2 tab PO HS
bupropion HCl [Wellbutrin XL] 300 mg Tablet Extended Release 24 Hr
300 mg PO DAILY
cholecalciferol (vitamin D3) [Vitamin D3] 25 mcg (1,000 unit) Tablet
25 mcg PO DAILY
omega 9-nnv-ofs-fish oil [Fish Oil] 1,000 (120-180) mg Capsule
1 cap PO DAILY
Move Free Joint Health 750 mg-100 mg- 1.65 mg-108 mg Tablet
1 tab PO DAILY
amoxicillin-pot clavulanate 875-125 mg tablet
1 tab PO BID Qty: 10 0RF
doxycycline hyclate 100 mg capsule
100 mg PO BID Qty: 10 0RF
Referrals:
Paris Espinoza PA [Family Provider, Family Practice]
Activity Restrictions/Additional Instructions:
Use Vaseline on the abrasion to keep it moist. Return immediately for change in mentation, headache, vomiting, weakness send of any kind, speech changes or any other concerns.
Interventions
Interventions:
*Risk Screen - Suicide Last Done: 11/06/25 16:35
*General Assessment Last Done: 11/06/25 16:35
*Neglect/Abuse Screening Last Done: 11/06/25 16:35
*ED COVID-19 Vaccine History Last Done: 11/06/25 16:35
*ED Influenza Vaccine History Last Done: 11/06/25 16:35
[facility] Fall Risk Assessment Tool Last Done: 11/06/25 17:08
*Nursing Disposition Last Done: 11/06/25 20:08
ED-Musculoskeletal Assessment Last Done: 11/06/25 17:08
ED- Neurological Assessment Last Done: 11/06/25 17:08
ED-Skin Assessment Last Done: 11/06/25 17:09
Discharge Date and Time
Discharge Date/Time: 11/06/25 20:05
Print Language: SRI LANKAN
== END 2025-11-06 20:05 | disposition home or self-care (01) ==
LOC: EMR 16:33
PROVIDERS: EMERGENCY PHYSICIAN Emergency Medicine; FAMILY PHYSICIAN Physician Assistant Medical
DX: S09.90XA Unspecified injury of head, initial encounter (principal); S00.31XA Abrasion of nose, initial encounter; S80.211A Abrasion, right knee, initial encounter; W01.0XXA Fall on same level from slipping, tripping and stumbling without subsequent striking against object, initial encounter; Y93.01 Activity, walking, marching and hiking; I48.91 Unspecified atrial fibrillation; I10 Essential (primary) hypertension; E78.00 Pure hypercholesterolemia, unspecified; Z79.01 Long term (current) use of anticoagulants; Z95.0 Presence of cardiac pacemaker; Z95.2 Presence of prosthetic heart valve
CPT/HCPCS: 99284; 70450; 85610

== ENCOUNTER 2025-11-10 21:51 | Emergency (ER) | payer MEDICARE, OTHER, SELFPAY ==
[2025-11-10 21:57] VITALS: BP 146/78
[2025-11-10 22:44] VITALS: BMI 26.0
[2025-11-10 22:54] VITALS: BP 152/87
[2025-11-11 01:30] VITALS: BP 154/89
[2025-11-11] MEDS: TYLENOL 650 MG PO (01:44)
--- NOTE | 2025-11-11 01:55 | ED.GENMED ---
History of Present Illness
General
Chief Complaint: Fall
Source: patient
Exam Limitations: none
Time Seen by Provider: 11/11/25 00:37
Nursing documentation reviewed up to this point in time: agreed with
History of Present Illness
History of Present Illness:
Patient is an 80-year-old female with history of atrial fibrillation on Coumadin, CHF, hypertension, hyperlipidemia with pacemaker who presents to the emergency department for evaluation of left hip pain following fall. Patient states she was in
her kitchen this evening when she twisted around and lost her balance falling onto her left hip. She is confident that she did not strike her head. Fortunately, a [employer] was nearby and able to assist her up where they called 911 for
transportation to the emergency department.
Patient reports pain in her left hip only with movement or ambulation. She has not attempted to weight-bear since fall. She denies any numbness/tingling or weakness in lower extremities. Patient specifically denies any headache, neck pain, chest
pain or shortness of breath. She states that she did not lose consciousness.
Past History
Past History
ED Past Medical History: Arrthythmia (Atrial fibrillation), HTN and Hypercholesterolemia
ED Past Surgical History: Cardiac
Social History
Tobacco: Non-smoker
Alcohol: Occasional
Drug: None
Personal:
Living: with family
Employment: Retired
Family History
Family History: Negative Diabetes, Hypertension or CAD
Review of Systems
Review of Systems
Allergies reviewed?: Yes
All Other Systems: ROS reviewed and negative except as documented in HPI and ROS
Phy Exam
Physical Exam
Physical Exam:
Vitals: Hypertensive, otherwise vital signs are stable. Afebrile
General: Patient is well appearing, no acute distress. Laying in recliner on my initial evaluation
Skin: Warm and dry, no rashes or lesions
Head: Normocephalic, atraumatic
Throat: Protecting airway
Neck: Normal ROM, no cervical spine tenderness
Cardiac: Regular rate
Pulm: No apparent respiratory distress
Abdomen: Nondistended
Back: No midline spinal tenderness.
Extremities: No obvious deformity of left lower extremity. She has mild reproducible tenderness in region of left posterior hip. Full range of motion in left hip including internal/external rotation. No pain in left knee or left ankle. 2+
palpable DP pulses with normal sensation. Ambulatory with walker
Neuro: Alert and oriented x 3. Grossly intact
Psychiatric: Normal affect.
Course
Orders/Labs/Results
Orders:
Orders
11/10/25 22:01
Hip, Left 2-3 Views [CR Hip - LT w/wo Pel 2-3 Vw*] Urgent
Comment:
Reason For Exam: FELL INTO WALL
Include a pelvis x-ray?: Yes
11/11/25 01:33
Acetaminophen [Tylenol] 650 mg PO NOW STA
11/11/25 01:44
Walker [Treatment- Walker] ONCE
11/11/25 01:58
pacemaker [Interrogate Pacemaker- Treatment] ONCE
Vital Signs
Initial and Last Documented VS:
Initial Vital Signs
Temp Pulse Resp BP Pulse Ox
97.8 F 66 20 146/78 97
11/10/25 21:57 11/10/25 21:57 11/10/25 21:57 11/10/25 21:57 11/10/25 21:57
Last Documented Vital Signs
Temp Pulse Resp BP Pulse Ox
97.8 F 69 18 154/89 98
11/10/25 21:57 11/11/25 02:18 11/11/25 02:18 11/11/25 01:30 11/11/25 02:18
MDM/Problems Addressed
Differential Diagnosis Includes:
Not limited to: Hip contusion, lumbar strain, hip fracture, pelvic fracture, hip dislocation, etc.
MDM/Problems Addressed:
80-year-old female presenting with left hip pain after mechanical fall this evening. Patient lost her balance in her kitchen falling on her left hip. She is adamant that she did not strike her head or lose consciousness. She describes pain in her
left posterior hip, worse with ambulation. No other injuries sustained.
Patient has stable vital signs. On exam, she is resting comfortably in recliner chair. There is no evidence of head or neck trauma. She is alert & oriented x 3 without focal deficits. No obvious deformity of left lower extremity, neurovascularly
intact. Very mild tenderness to posterior aspect of left hip.
An x-ray of the left hip/pelvis reveals no acute fracture.
Prior to my evaluation, patient was ambulating with assistance of walker and able to bear weight in emergency department.
Impression is left hip injury following mechanical fall. No history to suggesting syncope. Will interrogate pacemaker for completeness. Low suspicion for occult fracture as patient is very comfortable and able to weight bear without pain. I did
offer patient admission given concern for ambulatory dysfunction at home however, patient states that she is feeling much better and comfortable w/ discharge home to her independent living facility. Will discharge with walker. Strict return
precautions discussed. Patient comfortable with plan.
Chronic conditions affecting care:
Atrial fibrillation on Coumadin, pacemaker, hypertension
Acute Exacerbation and/or Progression of Chronic Illness:
Acutely hypertensive
*Radiology
Radiology exam reviewed: radiology read reviewed
*Pulse Oximetry
SaO2: 97
Oxygen Mode of Delivery: Room air
Patient hypoxic: no
*EKG
Interpreted by ED Provider?: NA
*Client Relationship Executive Interpretation
Rate: Client Relationship Executive- N/A
*Critical Care Note
Total Time (30-74mins, 75-104mins- exclusive of procedures): Not Applicable
ED Attending Note
-
Portions of this chart may have been created with voice recognition software.� Occasional wrong word or��sound alike� substitutions may have occurred due to the inherent limitations of voice recognition software.
Discharge Plan
Departure
Patient Disposition: Home (Routine Discharge)
Date of Disposition: 11/11/25
Time of Disposition: 01:42
Patient with high blood pressure during this ER visit?: Yes
Condition: Good
Discharge Problem:
Left hip pain
Instructions: Hip pain - ED (DC), BLOOD PRESSURE
Prescriptions:
No Action
cyanocobalamin (vitamin B-12) 1,000 MCG tablet
1,000 mcg PO DAILY
ascorbic acid (vitamin C) [Vitamin C] 500 MG tablet
500 mg PO DAILY
multivitamin with folic acid [Tab-A-Narayan] 1 TABLET tablet
1 tab PO DAILY
biotin 1 MG capsule
1 mg PO DAILY
PreserVision AREDS-2 250-90-40-1 mg Capsule
1 tab PO DAILY
amlodipine 5 MG tablet
5 mg PO DAILY Qty: 0 0RF
metoprolol succinate 25 MG tablet extended release 24 hr
25 mg PO BID
spironolactone 25 mg Tablet
12.5 mg PO DAILY
warfarin 4 mg Tablet
4 mg PO QPM
diphenhydramine-acetaminophen [Acetaminophen PM] 25-500 mg Tablet
2 tab PO HS
bupropion HCl [Wellbutrin XL] 300 mg Tablet Extended Release 24 Hr
300 mg PO DAILY
cholecalciferol (vitamin D3) [Vitamin D3] 25 mcg (1,000 unit) Tablet
25 mcg PO DAILY
omega 8-kly-eri-fish oil [Fish Oil] 1,000 (120-180) mg Capsule
1 cap PO DAILY
Move Free Joint Health 750 mg-100 mg- 1.65 mg-108 mg Tablet
1 tab PO DAILY
amoxicillin-pot clavulanate 875-125 mg tablet
1 tab PO BID Qty: 10 0RF
doxycycline hyclate 100 mg capsule
100 mg PO BID Qty: 10 0RF
Referrals:
Paris Espinoza PA [Family Provider, Family Practice]
Activity Restrictions/Additional Instructions:
RETURN TO THE EMERGENCY DEPARTMENT WITH ANY SEVERE HEADACHE OR NECK PAIN, BACK PAIN, WORSENING HIP PAIN OR INABILITY TO AMBULATE, WORSENING IN OTHER SYMPTOMS, OR ANY OTHER CONCERNS
- As discussed, your x-ray showed no evidence of a fracture in your left hip or pelvis.
- You were able to ambulate with the assistance of a walker in the emergency department.
- Please continue to take Tylenol as needed for pain. Continue to use walker at home for ambulation
- Follow-up with your primary care to ensure symptoms are improving/for further evaluation.
Monitor your symptoms closely and return to the emergency department with any acute worsening/new symptoms or any other concerns
Interventions
Interventions:
*General Assessment Last Done: 11/10/25 22:30
*Neglect/Abuse Screening Last Done: 11/10/25 21:57
*ED COVID-19 Vaccine History Last Done: 11/10/25 22:30
*ED Influenza Vaccine History Last Done: 11/10/25 22:30
[facility] Risk Assessment Tool Last Done: 11/10/25 22:30
*Risk Screen - Suicide (C-SSRS) Last Done: 11/10/25 21:57
*Nursing Disposition Last Done: 11/11/25 02:32
ED-Musculoskeletal Assessment Last Done: 11/10/25 22:30
ED- Neurological Assessment Last Done: 11/10/25 22:30
ED-Skin Assessment Last Done: 11/10/25 22:30
Discharge Date and Time
Discharge Date/Time: 11/11/25 02:34
Print Language: EAST TIMORESE
== END 2025-11-11 02:34 | disposition home or self-care (01) ==
LOC: EMR 21:51
PROVIDERS: EMERGENCY PHYSICIAN Student in an Organized Health Care Education/Training Program; FAMILY PHYSICIAN Physician Assistant Medical
DX: M25.552 Pain in left hip (principal); W01.198A Fall on same level from slipping, tripping and stumbling with subsequent striking against other object, initial encounter; I48.91 Unspecified atrial fibrillation; E78.00 Pure hypercholesterolemia, unspecified; I11.0 Hypertensive heart disease with heart failure; I50.9 Heart failure, unspecified; Z79.01 Long term (current) use of anticoagulants; Z95.0 Presence of cardiac pacemaker; Y92.000 Kitchen of unspecified non-institutional (private) residence as the place of occurrence of the external cause
CPT/HCPCS: 99283; 73502

== ENCOUNTER 2025-11-17 12:50 | Inpatient (IN) | payer MEDICARE, OTHER, SELFPAY ==
[2025-11-17] VITALS (8 sets, daily range): BP systolic 151–172; BP diastolic 62–92; BMI 26.2; BMI 25.6
--- NOTE | 2025-11-17 09:50 | ED.GENMED ---
History of Present Illness
General
Chief Complaint: Urinary Symptoms
Source: patient and ambulance crew
Exam Limitations: none
Time Seen by Provider: 11/17/25 09:31
Nursing documentation reviewed up to this point in time: agreed with
History of Present Illness
History of Present Illness:
Note:
CHIEF COMPLAINT(S)
Difficulty walking, primarily involving the left leg, and recent falls.
HISTORY OF PRESENT ILLNESS
The patient is an 80-year-old female with a history of falls, presenting with difficulty walking, particularly involving the left leg. The difficulty began last Monday and has persisted. The patient reports falling last week and the week before
that. She is currently residing in an assisted living facility. Her son was present during the latest incident and suggested calling the ambulance due to her inability to walk. She denies any hip surgeries, fever, or pain besides what is affecting
her mobility. She also mentioned having a 'shunt' in her head, but the duration of the shunts presence was not specified. Her previous hospital visits, during which she had been to the medical facility in the past two consecutive weeks, were
mentioned, and she believes that an X-ray might have been performed during her last visit.
ADDITIONAL HISTORY OBTAINED FROM SOURCES OTHER THAN THE PATIENT
Per the patients son, she was having difficulty standing or walking, which prompted the decision to call for medical assistance.
PHYSICAL EXAM
General: Alert, no acute distress.
Skin: Warm, dry.
Head: Normocephalic, atraumatic.
Neck: Supple, trachea midline.
Eye Ears, nose, mouth and throat: Oral mucosa moist.
Cardiovascular: Normal peripheral perfusion, No edema.
Respiratory: Respirations are non-labored.
Gastrointestinal : Abdomen nondistended.
Back: Normal range of motion, Normal alignment.
Musculoskeletal: Normal ROM, normal strength.
Neurological: Alert and oriented to person, place, time, and situation, No focal neurological deficit observed.
Psychiatric: Cooperative, appropriate mood & affect.
PROBLEM LIST
Acute Problems:
- Difficulty walking, particularly involving the left leg
- Recent falls
PLAN
- Evaluate for urinary tract infection to rule out a potential contributing factor.
- Consider imaging studies such as a CT scan of the head due to reported left leg weakness and history of a shunt.
- Re-evaluate mobility and perform appropriate interventions to ensure safety and prevent further falls.
DIFFERENTIAL DIAGNOSIS
The Differential Diagnosis includes, in no particular order and is not limited to:
- Musculoskeletal injury
- Neurological deficit
- Urinary tract infection
- Adverse effect of medications
- Orthostatic hypotension
- Dehydration
- Anemia
- Cardiac causes
- Cerebral vascular accident
- Shunt malfunction
Disposition:
SUMMARY OF ENCOUNTER
The 80-year-old female patient presented to the emergency department with difficulty walking and recent falls. Notable findings included a diagnosis of urinary tract infection (UTI) and weakness that contributed to multiple falls. A CT scan of the
head and a chest x-ray were performed, showing no acute findings, with stable positioning of the right ventriculostomy catheter and no changes from prior studies.
DISPOSITION
Admit to hospitalists.
ASSESSMENT
The patient appears to have a UTI contributing to weakness and recent falls. Conservative management with antibiotics and further evaluation of neurological status due to the stable but notable history of a ventriculostomy catheter is warranted.
EMERGENCY TREATMENTS ADMINISTERED
Antibiotics were initiated for the treatment of the suspected UTI, which may include (not explicitly mentioned) a dose of antibiotics as relevant for the type of infection considering patient allergies and sensitivities if known.
INDEPENDENT REVIEW OF LABS AND INTERPRETATION OF TESTS
My independent interpretation of the CT head shows no acute findings and the ventriculostomy catheter is in stable position with no changes from prior studies.
My independent interpretation of the chest x-ray reveals no acute findings.
PLAN
- Admit the patient to the hospital for further monitoring and management.
- Continue antibiotic therapy for the urinary tract infection.
- Monitor neurological status given the ventriculostomy catheter.
FOLLOW-UP INSTRUCTIONS
- Follow up on coordination with hospitalists for continued care and monitoring during hospital admission.
MEDICATION RECONCILIATION
- Order placed for initiation of appropriate antibiotic therapy for UTI, specifics pending on further antimicrobial susceptibility testing and patient review.
MEDICAL DECISION MAKING
-Complexity of Data Reviewed: Chronic conditions affecting care including difficulty walking, falls, history of ventricular catheter insertion. Differential diagnosis includes musculoskeletal injury, neurological deficit, urinary tract infection,
adverse effect of medications, orthostatic hypotension, dehydration, anemia, cardiac causes, cerebral vascular accident, and shunt malfunction.
-Data:
Category 1:
Lab tests and imaging reviewed and independently interpreted - CT scan of the head, chest x-ray.
Category 2:
Clinical information gathered from the patient and son regarding patient history and events leading to ED presentation.
-Risk:
Decisions regarding diagnostic testing (e.g., CT scan of the head) indicate consideration for safe continuation of outpatient management as they reveal no acute life/organ-threatening processes upon review. Admission facilitates further management
and review.
DIAGNOSIS
- Urinary tract infection (UTI) (ICD-10 code: N39.0)
- Weakness and gait instability leading to falls (ICD-10 code: R29.6)
- Encounter for assessment of the ventriculostomy catheter (ICD-10 code: Z43.3)
Past History
Past History
ED Past Medical History: Arrthythmia (Atrial fibrillation), HTN and Hypercholesterolemia
ED Past Surgical History: Cardiac
Social History
Tobacco: Non-smoker
Alcohol: Occasional
Drug: None
Personal:
Living: with family
Employment: Retired
Family History
Family History: Negative Diabetes, Hypertension or CAD
Phy Exam
Physical Exam
Physical Exam:
.
Course
Orders/Labs/Results
Orders:
Orders
11/17/25 09:48
Straight cath- Treatment ONCE
11/17/25 09:49
CT Head W/o Iv Contrast Urgent
Comment:
Reason For Exam: pain at evp of [employer] shunt
IV Insert/Care/Rem.- Treatment PRN
CR Chest - 2 Views Urgent
Comment:
Reason For Exam: weakness
11/17/25 09:57
Complete Blood Count/With Diff Urgent
Comprehensive Metabolic Panel Urgent
Urinalysis Reflex To Culture Urgent
Date Specimen was Collected: 11/17/25
Time Specimen was Collected: 09:54
Urine Microscopic Reflex Cult Urgent
Urine Culture Urgent
JOSE Source: U
Specimen Description:
Date Specimen was Collected: 11/17/25
Time Specimen was Collected: 09:54
11/17/25 11:23
CefTRIAXone [Rocephin] 1,000 mg IV NOW STA
Abnormal Lab Results
11/17/25
09:57
MCHC 32.2 L g/dL
(33.0-37.0)
RDW 14.6 H %
(11.5-14.5)
Absolute Lymphs (auto) 0.9 L 10^3/uL
(1.2-3.4)
Immature Gran % 0.7 H %
(0-0.5)
Lymphocytes % 14.9 L %
(20.5-51.1)
Eosinophils % 6.6 H %
(0-6)
BUN 25 H mg/dl
(7-17)
Urine Nitrite (Reflex) Positive A
(Negative)
Leukocyte Esterase Rfl 1+ A
(Negative)
Urine WBC (Reflex) 26-30 A /HPF
(0-5)
Urine Bacteria (Reflex) Many A
(Negative)
Urine Albumin (Reflex) 1+ A
(Neg - Trace)
11/17/25 09:57
11/17/25 09:57
Vital Signs
Initial and Last Documented VS:
Initial Vital Signs
Temp Pulse Resp BP Pulse Ox
98.2 F 60 19 165/84 95
11/17/25 09:37 11/17/25 09:37 11/17/25 09:37 11/17/25 09:37 11/17/25 09:37
Last Documented Vital Signs
Temp Pulse Resp BP Pulse Ox
98.2 F 60 14 165/84 95
11/17/25 09:37 11/17/25 09:39 11/17/25 09:39 11/17/25 09:38 11/17/25 09:51
*Pulse Oximetry
SaO2: 95
Oxygen Mode of Delivery: Room air
Patient hypoxic: no
*Critical Care Note
Total Time (30-74mins, 75-104mins- exclusive of procedures): Not Applicable
ED Attending Note
-
Portions of this chart may have been created with voice recognition software.� Occasional wrong word or��sound alike� substitutions may have occurred due to the inherent limitations of voice recognition software.
Discharge Plan
Departure
Patient Disposition: Admit
Date of Disposition: 11/17/25
Time of Disposition: 11:19
Presentation/result/management discussed w/ accepting MD/DO: Hospitalist
Patient with high blood pressure during this ER visit?: Yes
Condition: Fair
Discharge Problem:
Acute UTI, Weakness, Falls
Prescriptions:
No Action
cyanocobalamin (vitamin B-12) 1,000 MCG tablet
1,000 mcg PO DAILY
ascorbic acid (vitamin C) [Vitamin C] 500 MG tablet
500 mg PO DAILY
multivitamin with folic acid [Tab-A-Narayan] 1 TABLET tablet
1 tab PO DAILY
biotin 1 MG capsule
1 mg PO DAILY
PreserVision AREDS-2 250-90-40-1 mg Capsule
1 tab PO DAILY
amlodipine 5 MG tablet
5 mg PO DAILY Qty: 0 0RF
metoprolol succinate 25 MG tablet extended release 24 hr
25 mg PO BID
spironolactone 25 mg Tablet
12.5 mg PO DAILY
warfarin 4 mg Tablet
4 mg PO QPM
diphenhydramine-acetaminophen [Acetaminophen PM] 25-500 mg Tablet
2 tab PO HS
bupropion HCl [Wellbutrin XL] 300 mg Tablet Extended Release 24 Hr
300 mg PO DAILY
cholecalciferol (vitamin D3) [Vitamin D3] 25 mcg (1,000 unit) Tablet
25 mcg PO DAILY
omega 9-vda-ide-fish oil [Fish Oil] 1,000 (120-180) mg Capsule
1 cap PO DAILY
Move Free Joint Health 750 mg-100 mg- 1.65 mg-108 mg Tablet
1 tab PO DAILY
amoxicillin-pot clavulanate 875-125 mg tablet
1 tab PO BID Qty: 10 0RF
doxycycline hyclate 100 mg capsule
100 mg PO BID Qty: 10 0RF
Referrals:
Maykel Romano CRNP [Family Provider]
Interventions
Interventions:
*General Assessment Last Done: 11/17/25 09:37
*Neglect/Abuse Screening Last Done: 11/17/25 09:37
*ED COVID-19 Vaccine History Last Done: 11/17/25 09:37
*ED Influenza Vaccine History Last Done: 11/17/25 09:37
*Risk Screen - Suicide (C-SSRS) Last Done: 11/17/25 09:37
ED-Female Genitourinary Assessment Last Done: 11/17/25 09:37
Discharge Date and Time
Print Language: ARABIC
[2025-11-17 10:12] LABS: Hematocrit 42.9 % (37.0-47.0); Hemoglobin 13.8 g/dL (12.0-16.0); Mean Corp Hgb Conc. 32.2 g/dL (33.0-37.0); Mean Corpuscular Volume 90.3 fL (81.0-99.0); Nucleated Red Blood Cells % 0 %; Platelet Count 152 10^3/uL (130-400); Red Cell Dist. Width 14.6 % (11.5-14.5)
[2025-11-17 10:22] LABS: ALT (SGPT) 26 U/L (0-35); AST (SGOT) 34 U/L (14-36); Albumin 4.1 g/dl (3.5-5.0); Alkaline Phosphatase 104 U/L (38-126); Blood Urea Nitrogen 25 mg/dl (7-17); Calcium 9.4 mg/dl (8.4-10.2); Carbon Dioxide 28 mmol/L (22-30); Chloride 106 mmol/L (98-107); Estimated Creatinine Clearance 44 ml/min; Glucose 96 mg/dl (70-99); Potassium 4.2 mmol/L (3.5-5.1); Sodium 139 mmol/L (135-145); Total Protein 6.7 g/dl (6.3-8.2); eGFR > 60.00
[2025-11-17 10:35] LABS: Urine Character Clear (Clear)
[2025-11-17 11:01] LABS: Urine Squamous Cell >30 /LPF (Few); Urine Urothelial Cell 0-2 /LPF (FEW)
[2025-11-17 11:02] LABS: Urine Red Blood Cell 0-2 /HPF (0-2); Urine White Cell 26-30 /HPF (0-5)
[2025-11-17] MEDS: ROCEPHIN 1000 MG IV ×2 (12:14→18:25)
--- NOTE | 2025-11-17 12:34 | HPS.HSE ---
Family Physician
-
Family Physician: HEMALATHA Barahona
Chief Complaint
-
dysuria
History of Present Illness
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
putting a weight onto LLE. Also c/o urinary frequency. Admitted with UTI and ambulatory dysfunction.
Medical History
Past Medical History
Past Medical History: Reports Other
Additional Past Medical History:
as above
Past Surgical History: Reports Other
Additional Past Surgical History:
as above
Social History
Tobacco: Non-smoker
Alcohol: None
Drug: None
Family History
Family History: Not pertinent
Allergies / Home Medications
Allergies reflects when Allergies were last updated in [facility].
Home Medications with original date entered in [facility]
Allergy/Medication List:
Allergies
Allergy/AdvReac Type Severity Reaction Status Date / Time
Iodinated Contrast Media Allergy tingling, Verified 11/06/25 16:41
itching
ELECTRODE CARDIAC Allergy Rash Uncoded 11/10/25 22:00
Home Medications
ascorbic acid (vitamin C) 500 mg tablet (Vitamin C) 500 mg PO DAILY Supplement 09/20/21
cyanocobalamin (vitamin B-12) 1,000 mcg tablet 1,000 mcg PO DAILY Supplement 09/20/21
multivitamin with folic acid 400 mcg tablet (Tab-A-Narayan) 1 tab PO DAILY Supplement 09/20/21
vit C 250 mg-vit E 90 mg-zinc 40 mg-copper 1 vw-[id number]-trmpmv capsule (PreserVision AREDS-2) 1 tab PO DAILY Supplement 12/05/23
amlodipine 5 mg tablet 5 mg PO DAILY Blood Pressure #0 tabs 01/04/24
bupropion HCl 300 mg 24 hr tablet, extended release (Wellbutrin XL) 300 mg PO DAILY Mental Health/Anxiety 10/21/25
cholecalciferol (vitamin D3) 25 mcg (1,000 unit) tablet (Vitamin D3) 25 mcg PO DAILY Supplement 10/21/25
glucosam 750 mg-chondroi 100 mg-hyalur 1.65 mg-CF borate 108 mg tablet (Move Free Joint Ascendant Dx) 1 tab PO DAILY Supplement 10/21/25
metoprolol succinate 25 mg tablet,extended release 24 hr 25 mg PO BID Heart Disease/Condition 10/21/25
omega 1-pam-ojj-fish oil 1,000 mg (120 mg-180 mg) capsule (Fish Oil) 1 cap PO DAILY Supplement 10/21/25
spironolactone 25 mg tablet 12.5 mg PO DAILY Fluid Retention/Swelling 10/21/25
warfarin 4 mg tablet 4 mg PO QPM Blood Clot Prevention/Tx 10/21/25
atorvastatin 20 mg tablet 20 mg PO HS High Cholesterol 11/17/25
Review of Systems
-
History Source: Patient
A 12 point ROS was completed and negative except as noted: Yes
: Reports See HPI
Physical Exam
Vital Signs
Vital Signs
Temp Pulse Resp BP Pulse Ox
98.2 F 60 14 165/84 95
11/17/25 09:37 11/17/25 09:39 11/17/25 09:39 11/17/25 09:38 11/17/25 09:51
Physical Exam
General: Well Nourished, No Apparent Distress and Comfortable
HEENT: NormoCephalic, Anicteric and Moist mucous membranes
Respiratory: Clear; No Wheezes or Crackles
Cardiac: S1/S2, Regular Rhythm and Other (mechanical click 1st and 2nd sound)
GI: Soft, Non Tender and Non Distended
Genito-urinary: No costovertebral tender
Musculoskeletal: No Clubbing, No Cyanosis and No Edema
Skin: Warm
Neuro: Awake, Alert, Oriented and AO x 3
Psych: Calm
Laboratory Results
-
11/17/25 09:57
11/17/25 09:57
Laboratory Results
Total Bilirubin 1.0 mg/dl (0.2-1.3) 11/17/25 09:57
AST 34 U/L (14-36) 11/17/25 09:57
ALT 26 U/L (0-35) 11/17/25 09:57
Alkaline Phosphatase 104 U/L (38-126) 11/17/25 09:57
Data Reviewed
-
Diagnostic Radiology: Report Reviewed by me
CT Scan: Report Reviewed by me
Lab Data: Labs Reviewed by me
Impression/Plan
-
A/P:
#MAlaise 2/2 UTI
Ucx
cont Rocephin
#Ambulatory deficiency
PT/OT
no folcal neurological abnormality
Able to keep patient weight on L hip, therefore no concern for Fx.
XR L hip as of 11/10/25 -no Fx
#Falls w/o LOC
#NPH s/p PILL[employer] WORKER shunt
Head CT Without acute finsings
stable PILLAR WORKER sunt
#Mechanical MV
#Mechanical AV
INR target 2.5-3.5
follow daily INR
cont Coumadin
#Essential HTN
#HLD
cont home meds
DVT ppx Coumadin
DNR/DNI as discussed in details with patient and as per agreement with daughter bedside
I have spent at least 77min reviewing chart, test results, communication with conusltants and providing direct patient care
[2025-11-17 12:42] LABS: INR 2.47; PT 27.0 Sec (11.4-14.6)
[2025-11-17 12:55] LABS: Magnesium 1.9 mg/dl (1.6-2.3)
[2025-11-17 12:56] LABS: COVID-19 Antigen Negative (Negative)
[2025-11-17] MEDS: TYLENOL 650 MG PO ×2 (13:07→21:43)
--- NOTE | 2025-11-17 13:09 | EDCM ---
Reviewed chart and met with pt bedside in ED, lives alone in [place] apartment at [facility].
Independent in ADLs, personal care and ambulation at baseline, has been using [facility] since fall 2 weeks ago.
Confirms prescription coverage.
hx [facility], no hx SNF
PCP: Maykel Romano
Pharmacy: [facility]
CM will continue to follow for all discharge planning needs.
[2025-11-17] MEDS: NORVASC 5 MG PO (18:24)
[2025-11-17] MEDS: COUMADIN 4 MG PO (18:24)
[2025-11-17] MEDS: STERILE WATER FOR INJECTION 10 ML IV (18:25)
[2025-11-17] MEDS: TOPROL XL 25 MG PO (19:34)
[2025-11-17] MEDS: LIPITOR 20 MG PO (21:41)
[2025-11-18 05:17] VITALS: BMI 24.5
[2025-11-18 07:35] VITALS: BP 137/65
[2025-11-18 08:10] LABS: Hematocrit 40.9 % (37.0-47.0); Hemoglobin 13.2 g/dL (12.0-16.0); Mean Corp Hgb Conc. 32.3 g/dL (33.0-37.0); Mean Corpuscular Volume 90.7 fL (81.0-99.0); Nucleated Red Blood Cells % 0 %; Platelet Count 139 10^3/uL (130-400); Red Cell Dist. Width 14.6 % (11.5-14.5)
[2025-11-18 08:19] LABS: INR 2.95; PT 30.9 Sec (11.4-14.6)
[2025-11-18 08:39] LABS: ALT (SGPT) 25 U/L (0-35); AST (SGOT) 31 U/L (14-36); Albumin 3.6 g/dl (3.5-5.0); Alkaline Phosphatase 104 U/L (38-126); Blood Urea Nitrogen 19 mg/dl (7-17); Calcium 9.3 mg/dl (8.4-10.2); Carbon Dioxide 30 mmol/L (22-30); Chloride 107 mmol/L (98-107); Estimated Creatinine Clearance 44 ml/min; Glucose 88 mg/dl (70-99); Potassium 4.3 mmol/L (3.5-5.1); Sodium 138 mmol/L (135-145); Total Protein 6.1 g/dl (6.3-8.2); eGFR > 60.00
[2025-11-18 09:10] VITALS: BP 144/74; PULSE 61; O2SAT 97
[2025-11-18] MEDS: WELLBUTRIN XL (24 hour extended release) 300 MG PO (09:15)
[2025-11-18] MEDS: NORVASC 5 MG PO (09:15)
[2025-11-18] MEDS: ALDACTONE 12.5 MG PO (09:15)
[2025-11-18] MEDS: TOPROL XL 25 MG PO ×2 (09:17→20:22)
[2025-11-18] MEDS: TYLENOL 650 MG PO (09:40)
--- NOTE | 2025-11-18 10:04 | W.PN.HOSP.TC ---
Today's Communication/Plan
-
cont Rocephin pending Ucx
PT/OT
Assessment / Plan
Assessment / Plan
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
putting a weight onto LLE. Also c/o urinary frequency. Admitted with UTI and ambulatory dysfunction.
A/P:
#Malaise 2/2 UTI
Ucx
cont Rocephin
#Ambulatory deficiency
PT/OT
no folcal neurological abnormality
Able to keep patient weight on L hip, therefore no concern for Fx.
XR L hip as of 11/10/25 -no Fx
#Falls w/o LOC
#NPH s/p CASINO CAGE MANAGER shunt
Head CT Without acute finsings
stable CASINO CAGE MANAGER sunt
#Mechanical MV
#Mechanical AV
INR target 2.5-3.5
follow daily INR
cont Coumadin
#Essential HTN
#HLD
cont home meds
DVT ppx Coumadin
DNR/DNI as discussed in details with patient and as per agreement with daughter bedside
I have spent at least 51min reviewing chart, test results, communication with conusltants and providing direct patient care
Anticipated Discharge: 24 - 48 hours
Subjective/Interval History
-
Date of Service: November 18, 2025
Objective Data
-
Labs:
Laboratory Results
11/18/25
07:47
WBC 5.2
Hgb 13.2
Hct 40.9
Plt Count 139
PT 30.9 H
INR 2.95
Sodium 138
Potassium 4.3
Chloride 107
Carbon Dioxide 30
BUN 19 H
Creatinine 0.8
Glucose 88
Calcium 9.3
Total Bilirubin 0.8
AST 31
ALT 25
Alkaline Phosphatase 104
Vital Signs:
Vital Signs
Temp Pulse Resp BP Pulse Ox
97.3 F 61 18 137/65 95
11/18/25 07:35 11/18/25 07:35 11/18/25 07:35 11/18/25 07:35 11/18/25 07:35
Review of Systems
-
History Source: Patient
All other systems: Reviewed and negative
Physical Exam
-
General: No Apparent Distress
HEENT: Normocephalic
Respiratory: Clear to Auscultation
Skin: Warm
Neuro: Awake, Alert, Oriented and AO x 3
Psych: Calm
--- NOTE | 2025-11-18 10:50 | CM ---
CM met with patient art bedside. She is being treated for UTI, ambulatory dysfunction. Patient lives alone in an Independent Living apt at [facility].
PT/OT piedad completed this am- Home Health is recommended upon d/c. Patient reports that she has already [facility] up [facility]. She denies any other concerns about returning home upon d/c. her daughter will be available to assist her as
needed. daughter will provide transport home. IMM given.
PCP: Maykel Romano
Pharmacy: [facility]
D/c plan: Return to Independent [facility] apt[facility]
[2025-11-18 15:40] VITALS: BP 129/70
[2025-11-18] MEDS: STERILE WATER FOR INJECTION 10 ML IV (18:05)
[2025-11-18] MEDS: ROCEPHIN 1000 MG IV (18:05)
[2025-11-18] MEDS: COUMADIN 4 MG PO (18:05)
[2025-11-18] MEDS: LIPITOR 20 MG PO (20:23)
[2025-11-18 22:58] VITALS: BP 143/67
[2025-11-19 06:00] VITALS: BMI 24.5
[2025-11-19 06:40] LABS: INR 2.84; PT 30.1 Sec (11.4-14.6)
[2025-11-19 07:24] VITALS: BP 138/73
[2025-11-19] MEDS: NORVASC 5 MG PO (07:50)
[2025-11-19] MEDS: TYLENOL 650 MG PO (07:50)
[2025-11-19] MEDS: TOPROL XL 25 MG PO (07:50)
[2025-11-19] MEDS: ALDACTONE 12.5 MG PO (07:51)
[2025-11-19] MEDS: WELLBUTRIN XL (24 hour extended release) 300 MG PO (07:51)
[2025-11-19 08:49] VITALS: BP 132/61; PULSE 60; O2SAT 94
--- NOTE | 2025-11-19 10:09 | W.PN.HOSP.TC ---
Today's Communication/Plan
-
dc
Assessment / Plan
Assessment / Plan
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
putting a weight onto LLE. Also c/o urinary frequency. Admitted with UTI and ambulatory dysfunction. Ucx with mxed pau, however afebrile and with no leukoytosis - resonable to treat as for simple cystitis with cefdinir empirically. Total of 5 days
is reasonable. Was able to ambulate with a walker without problems. Medcially stable for d/c home with home health.
A/P:
#Malaise 2/2 UTI
Ucx
cont Rocephin
#Ambulatory deficiency
PT/OT
no folcal neurological abnormality
Able to keep patient weight on L hip, therefore no concern for Fx.
XR L hip as of 11/10/25 -no Fx
#Falls w/o LOC
#NPH s/p DECONTAMINATION TECHNICIAN shunt
Head CT Without acute finsings
stable DECONTAMINATION TECHNICIAN sunt
#Mechanical MV
#Mechanical AV
INR target 2.5-3.5
follow daily INR
cont Coumadin
#Essential HTN
#HLD
cont home meds
DVT ppx Coumadin
DNR/DNI as discussed in details with patient and as per agreement with daughter bedside
I have spent at least 36min reviewing chart, test results, communication with conusltants and providing direct patient care
Anticipated Discharge: Today
Subjective/Interval History
-
Date of Service: November 19, 2025
Objective Data
-
Labs:
Laboratory Results
11/19/25
06:13
PT 30.1 H
INR 2.84
Vital Signs:
Vital Signs
Temp Pulse Resp BP Pulse Ox
98.3 F 65 18 138/73 95
11/19/25 07:24 11/19/25 07:51 11/19/25 07:24 11/19/25 07:51 11/19/25 07:24
I&O
11/18/25 11/19/25 11/20/25
06:59 06:59 06:59
Intake Total 800 / 800
Balance 800 / 800
Review of Systems
-
History Source: Patient
All other systems: Reviewed and negative
Physical Exam
-
General: No Apparent Distress
HEENT: Normocephalic
Neuro: Awake, Alert, Oriented and AO x 3
Psych: Calm
--- NOTE | 2025-11-19 10:10 | W.DCSUMMARY ---
Discharge Summary
Discharge Data
Date of Admission: 11/17/25
Date of Discharge: 11/19/25
-
Pending Results: No
Hospital Course
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
putting a weight onto LLE. Also c/o urinary frequency. Admitted with UTI and ambulatory dysfunction. Ucx with mxed pau, however afebrile and with no leukoytosis - resonable to treat as for simple cystitis with cefdinir empirically. Total of 5 days
is reasonable. Was able to ambulate with a walker without problems. Medcially stable for d/c home with home health.
I have spent at least 51min reviewing chart, test results, communication with conusltants and providing direct patient care
Patient was managed for:
#Malaise 2/2 UTI
#Ambulatory deficiency
#Falls w/o LOC
#L hip soft tissue concussion
#NPH s/p MAPPING SPECIALIST shunt
#Mechanical MV
#Mechanical AV
#Essential HTN
#HLD
Discharge Plan
-
Patient Disposition: Home with Home Care
Discharge Diagnosis/Procedures: UTI
Diet: Other diet
Additional Diets: Coumadin diet
Activity: As tolerated
Other Services: VN
Referrals:
Maykel Romano CRNP [Family Provider]
Prescriptions:
New
cefdinir 300 mg capsule
300 mg PO BID Qty: 4 0RF
Continued
cyanocobalamin (vitamin B-12) 1,000 MCG tablet
1,000 mcg PO DAILY
ascorbic acid (vitamin C) [Vitamin C] 500 MG tablet
500 mg PO DAILY
multivitamin with folic acid [Tab-A-Narayan] 1 TABLET tablet
1 tab PO DAILY
PreserVision AREDS-2 250-90-40-1 mg Capsule
1 tab PO DAILY
amlodipine 5 MG tablet
5 mg PO DAILY Qty: 0 0RF
metoprolol succinate 25 MG tablet extended release 24 hr
25 mg PO BID
spironolactone 25 mg Tablet
12.5 mg PO DAILY
warfarin 4 mg Tablet
4 mg PO QPM
bupropion HCl [Wellbutrin XL] 300 mg Tablet Extended Release 24 Hr
300 mg PO DAILY
cholecalciferol (vitamin D3) [Vitamin D3] 25 mcg (1,000 unit) Tablet
25 mcg PO DAILY
omega 9-bdr-ghk-fish oil [Fish Oil] 1,000 (120-180) mg Capsule
1 cap PO DAILY
[employer] 750 mg-100 mg- 1.65 mg-108 mg Tablet
1 tab PO DAILY
atorvastatin 20 mg tablet
20 mg PO HS
Discharge Orders:
Discharge Patient (As Directed); Ordered 11/19/25
Ordered By: Brian Carrillo
Discharge Date and Time
Print Language: SETSWANA
[2025-11-19] MEDS: OMNICEF 300 MG PO (10:21)
[2025-11-19 10:54] VITALS: BP 125/71
[2025-11-19 11:00] VITALS: BP 125/71
--- NOTE | 2025-11-19 11:53 | CM ---
Patient was discharged home today. She returned to Independent Living at [facility]. CM referred patient back to [facility] for home PT and [facility] for VN services. Her daughter provided transport home.
Plan: home to [facility], [facility], [facility]
== END 2025-11-19 11:33 | disposition home health service (06) | DRG 690 ==
LOC: 4 WEST ACU 12:50
PROVIDERS: ADMITTING PHYSICIAN Internal Medicine; EMERGENCY PHYSICIAN Emergency Medicine
DX: N39.0 Urinary tract infection, site not specified (principal); G91.2 (Idiopathic) normal pressure hydrocephalus; I10 Essential (primary) hypertension; E78.00 Pure hypercholesterolemia, unspecified; I25.10 Atherosclerotic heart disease of native coronary artery without angina pectoris; I48.91 Unspecified atrial fibrillation; R26.2 Difficulty in walking, not elsewhere classified; Z66 Do not resuscitate; Z11.52 Encounter for screening for COVID-19; Z79.01 Long term (current) use of anticoagulants; Z79.899 Other long term (current) drug therapy; Z91.81 History of falling; Z98.2 Presence of cerebrospinal fluid drainage device
CPT/HCPCS: 70450; 71046; 80053; 81003; 81015; 83735; 84443; 85025; 85610; 87086; 87502; 87811; 96374; 97110; 97116; 97162; 97166; 97535; 99285